=== PATIENT | male | born 1975 | race Native Hawaiian/Other Pacific Islander ===

== ENCOUNTER 2023-10-28 07:34 | Emergency (ER) | payer SELFPAY ==
[2023-10-28 07:38] VITALS: BP 222/124; PULSE 86; RESP 18; TEMP 36.4; O2SAT 99; BMI 39.1
[2023-10-28 08:00] VITALS: BP 181/101
--- NOTE | 2023-10-28 08:13 | ED_ITS ---
HPI - General Adult General Chief complaint: Eye Problems Stated complaint: eye complaints Time Seen by Provider: 10/28/23 08:11 History of Present Illness HPI narrative: friday night eyes started dripping blood then something floating in them. then could not see out of R eye, could see shapes though. thought it was high blood sugar. has been off diabetes meds for 4-5 months, was unable to get them from the pharmacy. [facility] and was able to call and get medications yesterday. appointment unavailable for pt yesterday though. pt thinking symptoms a little better today but still cannot see r eye. does not check blood sugar. 48-year-old man presenting to the emergency department with concern of what appears to be dripping blood in his right eye in vision and floaters starting 2 and half days ago. Has been experiencing some posterior headaches as well. Had trouble at that time with appearance of blood seeing out of his right eye. That has improved but still blurry. Already has trouble with his left eye and has had ?surgery?/procedure at some point in [place] about a year ago. Chronically blurry in left eye. He notes how his eyelids also droop when he is tired in the evenings. It sounds as though there has been mention of glaucoma. Has seen [facility] in the past. Underlying history of diabetes. Has been off medications over the last 4 - 5 months but just got fills of glipizide and pioglitazone. No recent blood sugar checks. I notice that he has lower extremity edema which he says has been present since a [place] trip [place]. Is not complaining of shortness of breath or chest pain. He is not experiencing any eye pain at this time. No focal weakness. No loss of sensation peripherally noted. He is to be taking lisinopril as well but has not been able to get refill. Also he thinks there was to be a another medication, amlodipine? of uncertain dosing. I notice also clubbing of all nails on both hands -- says it has always been this way. On triage reported that not able to see top line on visual acuity testing with either eye. Denies double vision Without health insurance currently. Does get intermittent work at local [email or web address] facility. Recheck blood pressure 180/110 approximately working today working today working today Related Data Home Medications ?Medication ?Instructions ?Recorded ?Confirmed glipizide 10 mg tablet 10 mg PO BID 10/28/23 10/28/23 pioglitazone 45 mg tablet 45 mg PO DAILY 10/28/23 10/28/23 Allergies Allergy/AdvReac Type Severity Reaction Status Date / Time No Known Drug Allergies Allergy Verified 10/28/23 07:45 Review of Systems Status of ROS: Reports: 6 or more systems reviewed and unremarkable except as noted in History and below Exam Narrative: Exam Narrative: Pleasant. NAD. Slight ptosis of the left eye which reportedly is chronic. Head is atraumatic. Neck is supple. Heart with regular rate and rhythm without murmur rub or gallop. Lungs are clear. Extremities are well perfused. Moving all extremities without difficulty with good strength. Clubbing fingernails of both hands. 1+ pretibial pitting edema of the lower extremities bilaterally. Left perhaps a little more than the right. Abdomen is overweight soft and nontender. Cranial nerves 2-12 are intact other than he has the left eye with slightly more constricted pupil. Does accommodate but rather sluggish to constrict to direct light. Right eye with some dark spots noted on the retina. Conjugate gaze. Const: Vital Signs, click to edit/add: Vital Signs - 24 hr 10/28/23 07:38 10/28/23 08:00 10/28/23 08:30 Temperature 97.6 F Pulse Rate [Pulse Oximeter] 86 Respiratory Rate 18 Blood Pressure [Ri ght Upper Arm] 222/124 H 181/101 H 189/112 H Pulse Oximetry 99 Oxygen Delivery Me thod Room Air Documenting provider has reviewed patient's vital signs: yes Course Vital Signs Vital signs: Initial Vital Signs Temperature 97.6 F 10/28/23 07:38 Temperature Source Temporal Artery Scan 10/28/23 07:38 Pulse Rate 86 10/28/23 07:38 Respiratory Rate 18 10/28/23 07:38 Blood Pressure 222/124 H 10/28/23 07:38 Blood Pressure Mean 156 H 10/28/23 07:38 Blood Pressure Position Sitting 10/28/23 07:38 Pulse Oximetry 99 10/28/23 07:38 Oxygen Delivery Method Room Air 10/28/23 07:38 Vital Signs Temperature 97.6 F 10/28/23 07:38 Pulse Rate 86 10/28/23 07:38 Respiratory Rate 18 10/28/23 07:38 Blood Pressure 222/124 H 10/28/23 07:38 Pulse Oximetry 99 10/28/23 07:38 Oxygen Delivery Method Room Air 10/28/23 07:38 Temperature 97.6 F 10/28/23 07:38 Pulse Rate 86 10/28/23 07:38 Respiratory Rate 18 10/28/23 07:38 Blood Pressure 189/112 H 10/28/23 08:30 Pulse Oximetry 99 10/28/23 07:38 Oxygen Delivery Method Room Air 10/28/23 07:38 Medical Decision Making MDM Narrative Medical decision making narrative: Clearly needs control of diabetes and hypertension. Does have pending lab draw per his report. Will try to confirm this and get him an appointment as soon as possible through [facility]. He has been lost to primary care with snf of his primary care provider. Complicated also by lack of insurance. He has seen [facility] Dr. Teague I think this is less likely cerebral vascular injury and more likely retinal. Related to poorly treated diabetes and uncontrolled hypertension. Does have some peripheral edema as well. All of these symptoms are semi urgent but I think can be treated outpatient with close follow-up. I do speak with Dr. Baum at [facility] who does say that he has seen Dr. Teague at their clinic but did receive procedures to [place] with a Dr. Hope. Is known to have had vitreous hemorrhages and suspects that this is likely what is occurring here, possible retinal hemorrhage. Would like to be seen today. Have managed to make an appointment for [facility] yet today. And he is to show up at [facility] to be scheduled later in the day. Will need to get refills of his lisinopril and amlodipine. Will need diabetic testing supplies. See patient discharge plan for further discussion Medical Records Medical records reviewed: Yes I reviewed the patient's medical records Discharge Plan Discharge Clinical Impression: Vision changes, Hypertension, Diabetes, Edema, peripheral Patient Disposition: Home w/ Parent or Adult Additional Instructions: Please go directly to the [facility] to schedule an appointment today. I spoke to Dr. Baum about this. Then go to your [facility] appointment today --see below. I would anticipate a blood draw and further recommendations at your clinic appointment. You will need to restart your lisinopril and amlodipine. Be sure to keep your legs up at rest. Follow up appointment is scheduled with [facility] on 10/27 with an 11:30am appointment time. If you have any questions, please call [phone]. Please arrive at the [facility] for a follow up appointment. If you have any questions, please call [phone]. Por favor, dir?vicki directamente a la [facility] para programar danni ren hoy. Habl? con el Dr. Baum sobre esto. Luego, vaya a reyes ren con [facility] hoy mismo; consulte a continuaci?n. Preveo que le extraer?n kathy y le andriy?n m?s recomendaciones en reyes ren en la cl?della. Deber? reiniciar reyes tratamiento con lisinopril y amlodipino. Aseg?rese de mantener las piernas en alto mientras descansa. La ren de seguimiento est? programada con [facility] para el o a las 11:30 a. m. Si tiene alguna pregunta, llame al [phone]. Por favor, llegue a la [facility] para danni ren de seguimiento. Si tiene alguna pregunta, llame al [phone]. Prescriptions: No Action glipizide 10 mg tablet 10 mg PO BID pioglitazone 45 mg tablet 45 mg PO DAILY Follow Up/Referrals: Provider,Not a Local [Primary Care Provider] - Stand Alone Forms: [employer] Info Instructions
[2023-10-28 08:30] VITALS: BP 189/112
--- OUTSIDE RECORDS SUMMARY | 2023-10-28 08:50 | XMS_ITS | Data Portability ---
Author Organization [facility] CommunicationJerardo laoVALERIANO OFFICE Address [address] [place] [address] [facility] [place] [address] Assessment No assessment recorded. Plan of Treatment Reminders Order Date Submit Date Provider Last Modified By Organization Details Last Modified Time Details Appointments LAB WORK 2023 09:15A M Not available Not available Not available Lab CBC 2021 [facility], [address] [place], [place] [address], [address], 02/08/2022 15:16:54 CMP, serum or plasma 2021 [facility], [address] [place] [address] [facility] [place], [address], 02/11/2022 05:46:59 lipid panel, serum 2021 [facility], [address] [place], [place] [address], [address], 02/11/2022 05:46:59 hemoglobi n A1C/hemog lobin total, QN, blood 2021 [facility], [address] [place] [address] [facility] [place], [address], 02/08/2022 18:51:13 noninvasi ve colorecta l cancer DNA + occult blood screening , QL, stool [facility] [address] [place], [place] [address], [address], 03/05/2022 15:32:39 CBC w/ auto diff 04/03/ 2024 04/03/2 024 [facility], [address] [facility] [place] [facility] [place], [address], 07/25/2023 14:47:37 lipid panel, serum 2023 024 [facility], [address] [facility] [place], [address], 07/25/2023 14:47:37 CMP, serum or plasma 2023 024 [facility], [address] [facility] [place], [address], 07/25/2023 14:47:37 Referral community health worker referral - patient and family have limited means and need info on food shelf 2021 022 [email or web address] Not available 01/16/2022 12:37:[address] referral - has diabetic eye problems and optometri st wanted to see him frequentl y, he needs another apt 2022 023 [email or web address] Not available 03/12/2022 09:25:29 Procedures None recorded. Surgeries None recorded. Imaging None recorded. Medication Orders brimonidi ne 0.2 % eye drops 2021 022 [facility] [place], [address], [place], [address], 11/06/2021 17:46:[address] 0.005 % eye drops 2021 [facility]22 [facility] [place], [address], [place], [address], 11/06/2021 17:46:29 lisinopri l 5 mg tablet [email or web address] [place] [address] [place], [address] [place], [address], 06/04/2023 18:50:36 hydrochlo rothiazid e 25 mg tablet 2021 [email or web address] [facility], [address], [place], [address], 11/06/2021 17:55:56 pioglitaz one 30 mg tablet 2021 [email or web address] [facility], [address], [place], [address], 09/11/2023 20:13:28 lisinopri l 5 mg tablet 2021 [email or web address] [facility], [address], [place], [address], 06/04/2023 18:50:36 hydrochlo rothiazid e 50 mg tablet 2021 [facility], [address], [place], [address], 11/08/2021 11:06:24 lisinopri l 20 mg tablet [email or web address] [place] [address], [address], [place], [address], 06/04/2023 18:54:28 amlodipin e 5 mg tablet 2021 [facility], [address], [place], [address], 01/16/2022 12:32:52 metformin 1,000 mg tablet 2021 [facility], [address], [place], [address], 01/16/2022 12:29:39 glipizide 5 mg tablet 2021 [facility], [address], [place], [address], 01/16/2022 12:29:12 hydrochlo rothiazid e 50 mg tablet 2021 [facility], [address], [place], [address], 01/16/2022 12:30:22 pioglitaz one 45 mg tablet 2021 [facility], [address], [place], [address], 01/16/2022 12:35:00 atorvasta tin 20 mg tablet 2021 [facility], [address], [place], [address], 01/16/2022 12:32:19 lisinopri l 20 mg tablet 2023 024 [facility], [address], [place], [address], 06/05/2023 12:12:23 amlodipin e 5 mg tablet 2023 024 [facility], [address], [place], [address], 06/05/2023 12:12:17 atorvasta tin 20 mg tablet 2023 024 [facility], [address], [place], [address], 06/05/2023 12:14:58 glipizide 5 mg tablet 2023 024 [facility], [address], [place], [address], 07/18/2023 11:49:56 hydrochlo rothiazid e 50 mg tablet 2023 024 [facility], [address], [place], [address], 06/05/2023 12:12:55 metformin 1,000 mg tablet 2023 024 [facility] [place], [address], [place], [address], 06/05/2023 12:12:40 omeprazol e 40 mg capsule,d elayed release 2023 [facility], [address], [place], [address], 06/05/2023 12:11:55 pioglitaz one 45 mg tablet 2023 024 [facility] [place], [address], [place], [address], 06/05/2023 12:12:32 tadalafil 20 mg tablet [address]23 [address] [place], [address], [place], [address], 09/17/2023 22:39:18 Patient TargetsNo targets recorded. Patient Instructions Encounter Date Encounter Id Patient Instructions Last Modified By Organization Details Last Modified Time 07/03/2021 [id number] eat regularly, check glucose twice a week, cut lisinopril in half and switch to 5 mg, try to loose weight, coordinator will call you about APC application [email or web address] Not available 07/03/2021 20:10:19 check glucometer next visit scotty Not available 07/03/2021 20:10:35 11/06/2021 [id number] continue to loos e weight, watch for dizziness and cough, check glucose twice a week, have partner check feet daily for open or irritated areas scotty Not available 11/06/2021 18:18:34 already has had complications, need to lower BP and glucose more to protect health scotty Not available 11/06/2021 18:15:34 01/15/2022 [id number] ask to chec k glucometer twice a week, mann to decr weight scotty Not available 01/15/2022 18:31:35 info release for [facility] scotty Not available 01/15/2022 18:37:06 03/05/2022 [id number] continue to keep glucose down scotty Not available 03/05/2022 19:21:57 needs in person to check BP and feet, optometry requested scotty Not available 03/05/2022 19:22:49 Reason for Referral Diabetic Ophthalmology Refer ral for Type 2 diabetes mellitus without complication last opthalmology appointment 1 year ago - new vision changes recently Referring Physician: Manisha Machuca, Family Medicine, Encounter Date: 05/03/2020 Community Health Worker Refe rral for Type 2 diabetes mellitus patient and family have limited means and need info on food shelf Referring Physician: Osito Razo, Internal Medicine, Encounter Date: 01/15/2022 Licensed Appraiser Referral for Typ e 2 diabetes mellitus without complication has diabetic eye problems and 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 med compliance Referring Physician: Marylou Villeda Family Medicine, Encounter Date: 07/18/2023 Community Health Worker Refe rral for Type 2 diabetes mellitus poorly controlled diabetes, worsening kidney disease - needs diabetes ed, home glucose monitoring Referring Physician: Marylou Villeda Family Medicine, Encounter Date: 08/14/2023 Results Created Date Observation Date Name Description Value Unit Range Abnormal Flag Note LastModifiedBy Organization Detail LastModifiedTime 06/28/19 22 06/27/2021 HbA1c (hemo globi n A1c), blood A1C 7.4 high Not Available [facility] [address], [place], [address], 06/29/2021 09:10:36 06/28/19 22 06/27/2021 CMP, serum or plasm a createnine 1.39 high Not Available [facility] [address], [place], [address], 06/28/2021 12:16:16 06/28/19 22 06/27/2021 CMP, serum or plasm a ALT 23 Not Available [facility] [address], [place], [address], 06/28/2021 12:16:16 12/21/19 22 12/20/2021 micro album in, urine micro ratio 4,667. 8 high Not Available [address], [address], 12/21/2021 13:06:35 02/08/20 22 02/07/2022 CMP, serum or plasm a total cholesterol 171 Not Available Not Available 02/11/2022 05:46:59 02/08/20 22 02/07/2022 CMP, serum or plasm a triglyceride s 135 Not Available Not Available 01/31 05:46:59 02/08/20 22 02/07/2022 CMP, serum or plasm a HDL 52 Not Available Not Availa ble 02/11/2022 05:46:59 02/08/20 22 02/07/2022 CMP, serum or plasm a LDL 92 Not Available Not Availa ble 02/11/2022 05:46:59 02/08/20 22 02/07/2022 CMP, serum or plasm a creatinine 1.52 high Not Available Not Dia ilable 02/11/2022 05:46:59 02/08/20 22 02/07/2022 CMP, serum or plasm a ALT 20 Not Available Not Availa ble 02/11/2022 05:46:59 02/08/20 22 02/07/2022 lipid panel , serum total cholesterol 171 Not Available Not Available 02/09/2022 19:10:32 02/08/20 22 02/07/2022 lipid panel , serum triglyceride s 135 Not Available Not Available 01/31 19:10:32 02/08/20 22 02/07/2022 lipid panel , serum HDL 52 Not Available Not Availa ble 02/09/2022 19:10:32 02/08/20 22 02/07/2022 lipid panel , serum LDL 92 Not Available Not Availa ble 02/09/2022 19:10:32 02/08/20 22 02/07/2022 lipid panel , serum creatinine 1.52 high Not Available Not Dia ilable 02/09/2022 19:10:32 02/08/20 22 02/07/2022 lipid panel , serum ALT 20 Not Available Not Availa ble 02/09/2022 19:10:32 02/08/20 22 02/07/2022 hemog lobin A1C/h emogl obin total , QN, blood hemoglobin A1C 7.8 high Not Available [facility] [address], [place], [address], 02/08/2022 16:26:31 02/08/20 22 02/07/2022 CBC white blood count 8.2 Not Available [facility] [address], [place], [address], 02/08/2022 14:12:44 02/08/20 22 02/07/2022 CBC hemoglobin 11.0 Not Avail able [facility] [address], [place], [address], 02/08/2022 14:12:44 02/08/20 22 02/07/2022 CBC platelet count 328 Not Available [facility] [address], [place], [address], 02/08/2022 14:12:44 07/16/19 24 07/16/2023 hemog lobin A1c, QN, blood A1C 11.0 high Not Available [facility] [address], [place], [address], 07/17/2023 18:09:20 07/17/19 24 07/17/2023 lipid panel , serum micro ratio >10,23 2.6 abnormal Not Available [place] [facility] [address] [place] [address], [place], [address], 07/25/2023 14:47:37 07/17/19 24 07/17/2023 lipid panel , serum white blood count 6.9 Not Available [facility] [address] [place] [address] [place], [address], 07/25/2023 14:47:37 07/17/19 24 07/17/2023 lipid panel , serum hemoglobin 14.1 Not Available Count includes the [facility] [address] [place] [address] [place], [address], 07/25/2023 14:47:37 07/17/19 24 07/17/2023 lipid panel , serum plt 336 Not Available [place] [facility] [address] [place] [address] [place], [address], 07/25/2023 14:47:37 07/17/19 24 07/17/2023 lipid panel , serum cr 2.13 abnormal Not Available [place] [facility] [address] [place] [address] [place], [address], 07/25/2023 14:47:37 07/17/19 24 07/17/2023 lipid panel , serum eGFR 38 abnormal Not Available [place] [facility] [address] [place] [address] [place], [address], 07/25/2023 14:47:37 07/17/19 24 07/17/2023 lipid panel , serum ALT 20 Not Available [place] [facility] [address] [place] [address] [place], [address], 07/25/2023 14:47:37 07/17/19 24 07/17/2023 lipid panel , serum total cholesterol 420 high Not Available [facility] [address] [place] [address] [place], [address], 07/25/2023 14:47:37 07/17/19 24 07/17/2023 lipid panel , serum triglyceride s 332 high Not Available [facility] [address] [place] [address] [place], [address], 07/25/2023 14:47:37 07/17/19 24 07/17/2023 lipid panel , serum HDL 51 Not Available [place] [facility] [address] [place] [address] [place], [address], 07/25/2023 14:47:37 07/17/19 24 07/17/2023 lipid panel , serum LDL 303 high Not Available [place] [facility] [address] [place] [address] [place], [address], 07/25/2023 14:47:37 07/17/19 24 07/17/2023 CMP, serum or plasm a micro ratio >10,23 2.6 abnormal Not Available [place] [facility] [address] [place] [address] [place], [address], 07/25/2023 14:47:37 07/17/19 24 07/17/2023 CMP, serum or plasm a white blood count 6.9 Not Available [facility] [address] [place] [address] [place], [address], 07/25/2023 14:47:37 07/17/19 24 07/17/2023 CMP, serum or plasm a hemoglobin 14.1 Not Available Count includes the [facility] [address] [place] [address] [place], [address], 07/25/2023 14:47:37 07/17/19 24 07/17/2023 CMP, serum or plasm a plt 336 Not Available [place] [facility] [address] [place] [address] [place], [address], 07/25/2023 14:47:37 07/17/19 24 07/17/2023 CMP, serum or plasm a cr 2.13 abnormal Not Available [address] [place], [address], 07/25/2023 14:47:37 07/17/19 24 07/17/2023 CMP, serum or plasm a eGFR 38 abnormal Not Available [place] [facility] [address] [place] [address] [place], [address], 07/25/2023 14:47:37 07/17/19 24 07/17/2023 CMP, serum or plasm a ALT 20 Not Available [place] [facility] [address] [place] [address] [place], [address], 07/25/2023 14:47:37 07/17/19 24 07/17/2023 CMP, serum or plasm a total cholesterol 420 high Not Available [facility] [address] [place] [address] [place], [address], 07/25/2023 14:47:37 07/17/19 24 07/17/2023 CMP, serum or plasm a triglyceride s 332 high Not Available [facility] [address] [place] [address] [place], [address], 07/25/2023 14:47:37 07/17/19 24 07/17/2023 CMP, serum or plasm a HDL 51 Not Available [place] [facility] [address] [place] [address] [place], [address], 07/25/2023 14:47:37 07/17/19 24 07/17/2023 CMP, serum or plasm a LDL 303 high Not Available [place] [facility] [address] [place] [address] [place], [address], 07/25/2023 14:47:37 07/17/19 24 07/17/2023 CBC w/ auto diff micro ratio >10,23 2.6 abnormal Not Available [place] [facility] [address] [place] [address] [place], [address], 07/25/2023 14:47:37 07/17/19 24 07/17/2023 CBC w/ auto diff white blood count 6.9 Not Available [facility] [address] [facility] [place], [address], 07/25/2023 14:47:37 07/17/19 24 07/17/2023 CBC w/ auto diff hemoglobin 14.1 Not Available Count includes the [facility] [address] [place] [address] [place], [address], 07/25/2023 14:47:37 07/17/19 24 07/17/2023 CBC w/ auto diff plt 336 Not Available [place] [facility] [address] [place] [address] [place], [address], 07/25/2023 14:47:37 07/17/19 24 07/17/2023 CBC w/ auto diff cr 2.13 abnormal Not Available [place] [facility] [address] [place] [address] [place], [address], 07/25/2023 14:47:37 07/17/19 24 07/17/2023 CBC w/ auto diff eGFR 38 abnormal Not Available [place] [facility] [address] [place] [address] [place], [address], 07/25/2023 14:47:37 07/17/19 24 07/17/2023 CBC w/ auto diff ALT 20 Not Available [place] [facility] [address] [place] [address] [place], [address], 07/25/2023 14:47:37 07/17/19 24 07/17/2023 CBC w/ auto diff total cholesterol 420 high Not Available [facility] [address] [place] [address] [place], [address], 07/25/2023 14:47:37 07/17/19 24 07/17/2023 CBC w/ auto diff triglyceride s 332 high Not Available [facility] [address] [place] [address] [place], [address], 07/25/2023 14:47:37 07/17/19 24 07/17/2023 CBC w/ auto diff HDL 51 Not Available [place] [facility] [address] [place] [address] [place], [address], 07/25/2023 14:47:37 07/17/19 24 07/17/2023 CBC w/ auto diff LDL 303 high Not Available [place] [facility] [address] [place] [address] [place], [address], 07/25/2023 14:47:37 07/17/19 24 07/17/2023 micro album in/cr eatin ine, ratio panel , urine micro ratio >10,23 2.6 abnormal Not Available [place] [facility] [address] [place] [address] [place], [address], 07/25/2023 14:40:24 07/17/19 24 07/17/2023 micro album in/cr eatin ine, ratio panel , urine white blood count 6.9 Not Available [facility] [address] [place] [address] [place], [address], 07/25/2023 14:40:24 07/17/19 24 07/17/2023 micro album in/cr eatin ine, ratio panel , urine hemoglobin 14.1 Not Available Count includes the [facility] [address] [place] [address] [place], [address], 07/25/2023 14:40:24 07/17/19 24 07/17/2023 micro album in/cr eatin ine, ratio panel , urine plt 336 Not Available [place] [facility] [address] [place] [address] [place], [address], 07/25/2023 14:40:24 07/17/19 24 07/17/2023 micro album in/cr eatin ine, ratio panel , urine cr 2.13 abnormal Not Available [place] [facility] [address] [place] [address] [place], [address], 07/25/2023 14:40:24 07/17/19 24 07/17/2023 micro album in/cr eatin ine, ratio panel , urine eGFR 38 abnormal Not Available [place] [facility] [address] [place] [address] [place], [address], 07/25/2023 14:40:24 07/17/19 24 07/17/2023 micro album in/cr eatin ine, ratio panel , urine ALT 20 Not Available [place] [facility] [address] [place] [address] [place], [address], 07/25/2023 14:40:24 07/17/19 24 07/17/2023 micro album in/cr eatin ine, ratio panel , urine total cholesterol 420 high Not Available [facility] [address] [place] [address] [place], [address], 07/25/2023 14:40:24 07/17/19 24 07/17/2023 micro album in/cr eatin ine, ratio panel , urine triglyceride s 332 high Not Available [facility] [address] [place] [address] [place], [address], 07/25/2023 14:40:24 07/17/19 24 07/17/2023 micro album in/cr eatin ine, ratio panel , urine HDL 51 Not Available [place] [facility] [address] [place] [address] [place], [address], 07/25/2023 14:40:24 07/17/19 24 07/17/2023 micro album in/cr eatin ine, ratio panel , urine LDL 303 high Not Available [place] [facility] [address] [place] [address] [place], [address], 07/25/2023 14:40:24 08/13/19 24 08/13/2023 BMP, serum or plasm a cr 2.35 abnormal Not Available Not Avail able 08/14/2023 15:09:43 Result Notes None recorded. 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 94011417 Active 2020 Osito Razo MD [address] [place] [address], [address], [facility] 2 16:31:52 Nonproliferat jeannie retinopathy due to diabetes mellitus 881615851 Active 2020 Osito Razo MD [address] [place] [address], [address], [facility] 2 16:31:57 SARS-CoV-2 Active 2019 Josephine Gregory NP [address] [place] [address], [address], [facility] 0 15:00:43 Essential hypertension 22523572 Active 2021 Osito Razo MD [address] [place] [address], [address], [facility] 2 16:33:01 Hyperlipidemi a 20437715 Active 2021 Osito Razo MD [address] [place] [address], [address], [facility] 2 16:32:51 Chronic kidney disease 309812361 Active 2023 MARYLOU VILLEDA MD [address] [place] [address], [address], [facility] 01:14:05 Notes:Problem: Hypoglycaemia due to type 2 diabetes mellitus Status: Chronic Problem: Type 2 diabetes mellitus Status: Chronic, cloudy vision Problem Notes None recorded. Procedures Surgical History Date Name Laterality Status Provider Name and Address Organization Details Recorded Time Amputation of toe completed Manisha Machuca NP [address] [place] [address], [address], [facility] 05/03/2020 14:34:10 Imaging Results None recorded. Procedure Notes None recorded. Medical Equipment None Reported. Allergies Allergen ID Allergen Name Allergen Category Reaction Reaction Severity Criticality Documentation Date Start Date Code Code System Note Provider Name and Address Organization Details Recorded Time 1623 lisinopri l medicatio n cough mild Not available 11/06/2021 50405 RxNorm Osito Razo MD [address] [place], [address], [facility] 18:13:52 Medications Name Sig Start Date Stop Date Status Note LastModified by Organization Details LastModified Time latanoprost 0.005 % eye drops INSTILL 1 DROP IN LEFT EYE AT BEDTIME. SEPARATE BY AT LEAST 10MIN. FROM OTHER EYE DROP PRESSURE REDUCING OPTHALMIC DRUGS 11/06 completed Not Available Not Available Not Available pioglitazon e 15 mg tablet TAKE 2 TABLET EVERY DAY BY ORAL ROUTE. 11/06 completed Not Available Not Available Not Available atorvastati n 20 mg tablet TAKE 1 TABLET EVERY DAY BY ORAL ROUTE. active Not Available Not Available No t Available clindamycin HCl 300 mg capsule TAKE 1 CAPSULE (300MG) BY MOUTH 3 TIMES DAILY FOR 14 DAYS. 01/23 completed Not Available Not Available Not Available hydrochloro thiazide 50 mg tablet TAKE 1 TABLET EVERY DAY BY ORAL ROUTE. active Not Available Not Available No t Available lisinopril 20 mg tablet TAKE ONE TABLET BY MOUTH ONCE DAILY active Not Available Not Available No t Available glipizide 10 mg tablet IGNACIA 1 TABLETA POR VIA ORAL DOS VECES AL KATHY (1 TABLET BY MOUTH TWO TIMES A DAY) active Not Available Not Available No t Available bacitracin 500 unit/gram topical ointment once a day 11/25 completed Not Available Not Available Not Available pioglitazon e 45 mg tablet TAKE 1 TABLET EVERY DAY BY ORAL ROUTE. active Not Available Not Available No t Available amlodipine 5 mg tablet TAKE 1 TABLET BY MOUTH DAILY active Not Available Not Available No t Available sulfamethox azole 800 mg-trimetho prim 160 mg tablet take 1 tablet by oral route every 12 hours 05/03 completed Not Available Not Available Not Available omeprazole 40 mg capsule,del ayed release TAKE 1 CAPSULE EVERY DAY BY ORAL ROUTE. active Not Available Not Available No t Available aspirin 81 mg tablet,quentin yed release take 1 tablet by oral route every day 2021 active Not Available Not Available Not Avai lable tramadol 50 mg tablet take 1 tablet hs as needed 09/16 completed Not Available Not Available Not Available sildenafil 100 mg tablet TAKE ONE TABLET BY MOUTH EVERY DAY NEEDED APPROXIMA TELY 1 HOUR BEFORE SEXUAL ACTIVITY 06/03 completed Not Available Not Available Not Available ketorolac 10 mg tablet 05/03 completed Not Available Not Available Not Available metformin 1,000 mg tablet Take 0.5 tablets twice a day by oral route, for type 2 diabetes. 2023 active Not Available Not Available Not Avai lable neomycin-po lymyxin-dex ameth 3.5 mg/mL-10,00 0 unit/mL-0.1 % eye drops APPLY 1 DROP INTO INJECTED EYE 3 TIMES A DAY FOR 3 DAYS AFTER INJECTION . IF DOES NOT IMPROVE IN 3-5 DAYS CONTACT PROVIDER 01/23 completed Not Available Not Available Not Available brimonidine 0.2 % eye drops APPLY 1 DROP TWICE A DAY IN LEFT EYE 11/06 completed Not Available Not Available Not Available lisinopril 5 mg tablet TAKE 1 TABLET EVERY DAY BY ORAL ROUTE. 06/03 completed Not Available Not Available Not Available hydrochloro thiazide 25 mg tablet TAKE 1 TABLET EVERY DAY BY ORAL ROUTE. 11/06 completed Not Available Not Available Not Available levofloxaci n 500 mg tablet take 1 tablet by oral route every 24 hours 12/30 completed Not Available Not Available Not Available levofloxaci n 750 mg tablet TAKE ONE TABLET BY MOUTH DAILY 10/17 completed Not Available Not Available Not Available pioglitazon e 30 mg tablet TAKE 1 TABLET EVERY DAY BY ORAL ROUTE. 09/10 completed Not Available Not Available Not Available glipizide 5 mg tablet TAKE 2 TABLETS BY MOUTH TWICE A DAY active Not Available Not Available No t Available amoxicillin 875 mg-potassiu m clavulanate 125 mg tablet TAKE 1 TABLET BY MOUTH TWO TIMES DAILY WITH MEALS FOR 10 DAYS. 01/15 completed Not Available Not Available Not Available rosuvastati n 10 mg tablet TAKE 1 TABLET BY MOUTH DAILY 01/15 completed Not Available Not Available Not Available tadalafil 20 mg tablet TAKE ONE TABLET BY MOUTH DAILY 09/16 completed eGFR 33 Not Available Not Available Not Available melatonin 5 mg capsule one at bedtime as needed 09/16 completed Not Available Not Available Not Available Vitals Date Recorded Body height Body mass index (BMI) Body weight Heart rate Systolic blood pressure Diastolic blood pressure Provider Name and Address Organization Details Last Updated DateTime 2 170.18 cm 34.1 kg/m2 64175.1 4 g 94 /min 140 mm[Hg] 83 mm[Hg] Lissy Juarez [facility] 2 19:37:30 Date Recorded Body height Body mass index (BMI) Body weight Systolic blood pressure Diastolic blood pressure Provider Name and Address Organization Details Last Updated DateTime 11/06/2021 170.18 cm 32.9 kg/m2 24567.4 g 140 mm[Hg] 78 mm[Hg] Osito Razo MD [address] [place], [address] [place] [address] [facility] 2 18:05:17 Date Recorded Body height Body mass index (BMI) Body weight Heart rate Oxygen saturation Oxygen saturation in Arterial blood by Pulse oximetry Systolic blood pressure Diastolic blood pressure Systolic blood pressure Diastolic blood pressure Provider Name and Address Organization Details Last Updated DateTime 4 166.37 cm 35.1 kg/m2 12756.7 7 g 82 /min 98 % 98 % 178 mm[Hg] 102 mm[Hg] 182 mm[Hg] 104 mm[Hg] Theodora Lewis [facility] 4 18:55:15 Social History Question Answer Notes LastModified by Organizat ion Details LastModified Time Tobacco Smoking Status Never Smoker Manisha Machuca NP [address] [place], [address], [facility] 05/03/2020 14:33:17 What Is Your Level Of Alcohol Consumption? None Information not available 05/03/2020 What Is Your Level Of Caffeine Consumption? Moderate Information not available 05/03/2020 Are You Currently Employed? Yes Information not available 11/06/2021 Who Is Your Employer? [employer] Information not available 11/06/2021 What Is Your Occupation? Packing Information not available 05/03/2020 What Is Your Relationship Status? Information not available 11/06/2021 Do You Feel Stressed (tense, Restless, Nervous, Or Anxious, Or Unable To Sleep At Night)? [id number] Information not available 11/06/2021 Sex: Unknown Functional Status None recorded. Mental Status None recorded. Family History Nothing Reported. Medical History No medical history recorded. Immunizations Vaccine Type Date Status Provider Name and Address Organization Details Recorded Time COVID-19, mRNA, LNP-S, PF, 30 mcg/0.3 mL dose, julianna-sucrose 05/23/2021 completed ED WILLIS [address] [place], [address], [facility] 05/23/2021 17:45:28 Past Encounters Encounter ID Performer Location Encounter Start Date Encounter Closed Date Diagnosis/Indication Diagnosis SNOMED-CT Code [id number] Josephine Gregory NP [facility] [address] [place] [id number] 09/01/2019 14:52:02 09/01/2019 14:53:39 SARS-CoV-2 [id number] Osito Razo MD [facility] [address] [place] [phone] 12/13/2019 14:49:16 12/13/2019 17:54:39 Primary erectile dysfunction [id number] Manisha Machuca NP [facility] [address] [place] [address] 05/03/2020 14:14:37 05/03/2020 18:01:28 Headache 50623342 Type 2 kathy betes mellitus without complication 847325415 Essential hypertension 51224362 [id number] Osito Razo MD [facility] [address] [place] [address] 06/13/2020 17:59:05 06/13/2020 18:27:51 Type 2 diabetes mellitus without complication 952316331 [id number] Osito Razo MD [facility] [address] [place] [address] 06/27/2020 17:39:55 06/28/2020 11:08:24 Diabetes mellitus 74855121 [id number] Osito Razo MD [facility] [address] [place] [phone] 08/29/2020 19:23:59 08/29/2020 20:02:05 Type 2 diabetes mellitus without complication 736071280 Headache 45580311 [id number] Osito Razo MD [facility] [address] [place] [phone] 10/17/2020 17:09:51 10/17/2020 17:47:36 Type 2 diabetes mellitus 01489867 Type 2 kathy betes mellitus without complication 050538289 Headache [id number] [id number] Osito Razo MD [facility] [address] [place] [id number] 01/23/2021 19:02:46 01/23/2021 19:36:21 Type 2 diabetes mellitus 62128820 Type 2 kathy betes mellitus without complication [id number] Osito Razo MD [facility] [address] [place] [address] 04/10/2021 17:39:19 04/10/2021 19:25:00 Type 2 diabetes mellitus without complication 932853097 Essential hypertension 61421290 Chronic ki dney disease stage 2 [id number] [id number] Osito Razo MD [facility] [address] [place] [phone] 05/08/2021 18:13:01 05/08/2021 19:01:44 Type 2 diabetes mellitus without complication 644106731 Headache [id number] [id number] WILLIAM REILLY TILE HELPER [facility] [place] [address] 05/23/2021 17:28:58 05/23/2021 17:45:44 Administration of SARS-CoV-2 mRNA vaccine [id number] Osito Razo MD [facility] [address] [place] [address] 07/03/2021 19:28:46 07/03/2021 20:11:47 Type 2 diabetes mellitus without complication 542125313 Essential hypertension 20292870 [id number] Osito Razo MD [facility] [address] [place] [address] 11/06/2021 17:29:24 11/06/2021 19:08:31 Type 2 diabetes mellitus 35937374 Retinopath y due to diabetes mellitus 1542141 Essential hypertension 66698164 Hyperlipidemia 33219351 [id number] Osito Razo MD [facility] [address] [place] [address] 01/15/2022 17:52:16 01/15/2022 18:57:39 Type 2 diabetes mellitus without complication 335971613 Essential hypertension 18417441 Type 2 kathy betes mellitus 42410600 [id number] Osito Razo MD [facility] [address] [place] [address] 03/05/2022 19:00:32 03/06/2022 12:22:32 Essential hypertension 56531340 Type 2 kathy betes mellitus without complication 346272172 Hyperlipidemia 28110549 [id number] Giorgi Esquivel MD [facility] [place] [address] 06/04/2023 18:46:11 06/04/2023 20:22:18 Type 2 diabetes mellitus 87641652 Type 2 kathy betes mellitus without complication 887441666 Essential hypertension 04380288 Diabetes mellitus 605094 09 Hypertensive disorder 38 811645 Type II di abetes mellitus uncontrolled 013748488 Health Concerns Section Related Observation LastModified by Organization Detai ls LastModified Time None Recorded Concern Status LastModified by Organization Details LastModified Time None Recorded Advance Directives Directive None Recorded Payers Encounter Date Sequence Insurance Name Policy Number Policy Han Covered Member ID Han Member ID Guarantor Name 07/03/2021 SLIDING FEE SCHEDULE - DISCOUNT [employer] 11/06/2021 SLIDING FEE SCHEDULE - DISCOUNT [employer] 01/15/2022 SLIDING FEE SCHEDULE - DISCOUNT [employer] 03/05/2022 SLIDING FEE SCHEDULE - DISCOUNT [employer] 06/04/2023 SLIDING FEE SCHEDULE - DISCOUNT [employer] Notes Date Note Type Note Provider Name and Address Organization Details Recorded Time 07/03/2021 text/html HPI Notes: alejandra noriega, sees station operator regularly and will need another injection, followed by tooth cutter as he has lost several toes, cough from lisinopril, brought diaries and BP 140/80 at home Osito Razo MD [address] [place], [address], [facility] 07/03/2021 20:10:48 06/04/2023 text/html HPI Notes: needs follow up on htn and diabetes Giorgi Esquivel MD [address] [place], [address], [facility] 06/04/2023 19:34:32
--- OUTSIDE RECORDS SUMMARY | 2023-10-28 08:50 | XMS_ITS | Clinical Summary ---
Author Organization [facility] Address [place], [place] [address] Care Team Providers Care Non Garment Sewing Machine Operator Name Role Phone Osito Razo MD Primary Care Provider [phone] Allergies No known active allergies Medications Medication Sig Dispensed Refills Start Date End Date Status blood-glucose meterIndications:Unc ontrolled type 2 diabetes mellitus with hyperglycemia, unspecified half-way insulin use status Dispense meter, test strips, lancets covered by pt ins. E11.65 NIDDM type II, uncontrolled - Test 2 times/day. Reason: High A1C 1 Each 10/25/2015 Active blood sugar diagnostic (GLUCOCARD VITAL TEST STRIPS) strip Test 2 times/day. 50 Each 10/25/2015 Active lancets (TRUEPLUS LANCETS) 33 gauge misc Test 2 times/day. 100 Each 10/25/2015 Active sildenafil citrate (VIAGRA) 100 mg tablet Take 100 mg by mouth once daily if needed for Erectile Dysfunction. 6 08/20/2018 Active ibuprofen (ADVIL; MOTRIN) 200 mg tablet Take 400 mg by mouth 4 times daily if needed for Pain. Active lisinopriL (PRINIVIL; ZESTRIL) 20 mg tablet Take 20 mg by mouth 2 times daily. Active menthol (GOLD RAIN FOOT TOP) Apply topically to affected area(s) once daily if needed (dry skin). Active amLODIPine (NORVASC) 5 mg tablet Take 5 mg by mouth once daily. Active rosuvastatin (CRESTOR) 10 mg tablet Take 10 mg by mouth at bedtime. Active pen needle, diabetic 31 gauge x 5/16Indications:Typ e 2 diabetes mellitus with diabetic toe ulcer (HC) For administering insulin at home. 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 . 0 units 150 - 199 .................. ..... 2 units 200 - 249 .................. ..... 4 units 250 - 299 .................. ..... 6 units 300 - 349 .................. ..... 8 units 350 - 399 .................. .....10 units 400 or greater .............. 12 units 1 pen 11/26/2019 Active metFORMIN (GLUCOPHAGE XR) 500 mg Extended-Release tabletIndications:Ty pe 2 diabetes mellitus with diabetic toe ulcer (HC) Take 2 tablets by mouth 2 times daily with meals. 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 30 tablet. 05/01/2020 Active lisinopriL (PRINIVIL; ZESTRIL) 20 mg tabletIndications:Hy pertension Take 1 tablet by mouth 2 times daily. 60 tablet 05/01/2020 Active aspirin (ECOTRIN) 81 mg enteric coated tablet Daily as needed Active glipiZIDE (GLUCOTROL) 5 mg tablet Daily Active rx oxyCODONE 5 mg (ROXICODONE) tablet (ED DC MED)Indications:Acut e frontal sinusitis, recurrence not specified,Acute nonintractable headache, unspecified headache type Take 1 Tablet (5 mg) by mouth every 6 hours if needed for Pain. 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 07/25/2016 Nausea 07/25/2016 Hypertension 07/22/2016 Osteomyelitis of ankle or foot 07/21/2016 Diabetic ulcer of left foot associated with type 2 diabetes mellitus 10/21/2015 Overview: I&D of right foot ulcer 10/2015 Type 2 diabetes mellitus wit hout complication, without long-term current use of insulin 03/03/2006 Gas gangrene of foot Resolved Problems Problem Noted Date Diagnosed Date Resolved Date Unavailability or inaccessib ility of healthcare facility 07/21/2016 07/22/2016 Abscess of right foot 10/21/20152016 Type 2 diabetes mellitus wit h foot ulcer and gangrene 10/21/2015 07/22/2016 Elevated C-reactive protein (CRP) 10/21/2015 07/22/2016 Cellulitis of foot 10/20/2015 7 Type II or unspecified type diabetes mellitus without mention of complication, not stated as uncontrolled 12/24/2005 07/22/2016 Encounters Date Type Department Care Team Description 08/13/2023 Lab Requisition [address] [address] Marylou Garner MD from Last 3 Months Immunizations Name Administration Dates Next Due Influenza, IIV4 11/25/2019 Family History Medical History Relation Name Comments Gout Brother 1 younger Vitiligo Brother 2 younger Cancer Father Cancer Mother Arthritis Sister 1 younger Good Health Sister 2 older Relation Name Status Comments Brother 1 younger Brother 2 younger Alive Father (Age 68) at 68 of liver cancer Mother (Age 60) at 60 of liver cancer Sister 1 younger Sister 2 older Alive Social History Tobacco Use Types Packs/Day Years Used Date Smoking Tobacco: Never Smokeless Tobacco: Never Tobacco Cessation:Counseling Given: Yes Alcohol Use Standard Drinks/Week Comments Not Currently 0 (1 standard drink = 0.6 oz pur e alcohol) Sex and Gender Information Value Date Recorded Sex Assigned at Not on file Gender Identity Not on file Sexual Orientation Not on file Obstetrics History Last Filed Vital Signs Vital Sign Reading Time Taken Comments Blood Pressure 176/90 11/28/2021 10:00 PM CDT Pulse 91 11/28/2021 10:00 PM CDT Temperature 36.4 ??C (97.5 ??F) 11/28/2021 2:05 PM CD T Respiratory Rate 18 11/28/2021 2:05 PM CDT Oxygen Saturation 97% 11/28/2021 10:00 PM CDT Inhaled Oxygen Concentration - - Weight 96.6 kg (213 lb) 11/28/2021 2:29 PM CDT Height 157.5 cm (5' 2) 11/28/2021 2:05 PM CDT Body Mass Index 38.96 11/28/2021 2:05 PM CDT Plan of Treatment Health Maintenance Due Date Last Done Comments Tdap 07/19/1986 HIV for age 15-65 07/19/1990 Hepatitis C screening for age 18-79 07/19/1993 Tetanus booster 1995 Depression screening for age 12+ 10/31/2016 11/01/2015, 10/26/2015 BMI (ht and wt on same day) for age 18+ 08/04/2017 08/04/2016, 08/03/2016, 08/02/2016, Additional history exists Colonoscopy through age 75 07/19/2020 COVID-19 vaccine series (2022- season) 2022 05/23/2021, 07/06/2020, 06/07/2020 Influenza for age 9-49 11/02/2023 11/25/2019 Lipids for age 45-75 07/15/2028 07/16/2023, 02/07/2022, 03/28/2021, Additional history exists Pneumococcal series for age 6-64 Aged Out No longer eligible based on patient's age to complete this topic Medical Devices Implanted Type Area Market Development Manager Device Identifier Shelf Expiration Date Model / Serial / Lot Mfwd 301 - [id number] Implanted:Qty: 2 on 10/24/2015 by Oscar Bustamante DPM at [facility] Right: Foot 06/30/2016 FWD 301 / / [id number] 1 Description:Integra flowable wound matrix [id number] - [id number] Implanted:Qty: 1 on 10/24/2015 by Oscar Bustamante DPM at [facility] Right: Foot [employer] 05/31/2017 [id number] / / [id number] Description:PriMatrix 6cm x 6cm Procedures Procedure Name Priority Date/Time Associated Diagnosis Comments BASIC METABOLIC PANEL Routine 08/13/2023 9:30 AM CDT LIPID PANEL Routine 07/16/2023 9:45 AM CDT from Last 3 Months or Most Recently Relevant to Health Maintenance Results * (ABNORMAL) BASIC METABOLIC PANEL (08/13/2023 9:30 AM CDT) SODIUM 136 136 - 145 mmol/L 08/14/2023 1:04 PM CDT [facility] POTASSIUM 4.6 3.5 - 5.1 mmol/L 08/14/2023 1:04 PM CDT [facility] CHLORIDE 107 98 - 107 mmol/L 08/14/2023 1:04 PM CDT [facility] CO2,TOTAL 20(L) 22 - 29 mmol/L 08/14/2023 1:04 PM CDT [facility] ANION GAP 9 5 - 18 08/14/2023 1:04 PM CDT [facility] GLUCOSE 193(H) 70 - 99 mg/dL 08/14/2023 1:04 PM CDT [facility] CALCIUM 8.7 8.6 - 10.0 mg/dL 08/14/2023 1:04 PM CDT [facility] BUN 36(H) 6 - 20 mg/dL 08/14/2023 1:04 PM CDT [facility] CREATININE 2.34(H) 0.70 - 1.20 mg/dL 08/14/2023 1:04 PM CDT [facility] BUN/CREAT RATIO 15 10 - 20 4 1:04 PM CDT [facility] eGFR 33(L) >90 mL/min/1.7 3m2 08/14/2023 1:04 PM CDT [facility] Comment:As of 2021, eG FR is calculated by the CKD-EPI creatinine equation without race adjustment. ??eGFR can be influenced by muscle mass, exercise, and diet. ??The reported eGFR is an estimation only and is only applicable if the renal function is stable. Blood BLOOD SPECIMEN / Unknown 08/13/2023 9:30 AM CDT 08/14/2023 12:30 PM CDT Marylou Garner MD CHEMISTRY [facility] [address] [place] [address], * (ABNORMAL) LIPID PANEL (07/16/2023 9:45 AM CDT) CHOLESTEROL,TOTAL 420(H) 100 - 199 mg/dL 07/17/2023 3:25 PM CDT [facility] Comment: Cholesterol, Total Reference Ranges Desirable <200 mg/dL Borderline 200-239 mg/dL High >=240 mg/dL TRIGLYCERIDES 332(H) <150 mg/dL 07/17/2023 3:25 PM CDT [facility] HDL CHOLESTEROL 51 >40 mg/dL 4 3:25 PM CDT [facility] NON-HDL CHOLESTEROL 369(H) <145 mg/dl 07/17/2023 3:25 PM CDT [facility] CHOL/HDL RATIO 8.24(H) <4.50 07/17/2023 3:25 PM CDT [facility] LDL CHOLESTEROL 303(H) <=130 mg/dL 07/17/2023 3:25 PM CDT [facility] VLDL CHOLESTEROL 66(H) <=30 mg/dL 07/17/2023 3:25 PM CDT [facility] PROVIDER ORDERED STATUS RANDOM 07/17/2023 3:25 PM CDT [facility] Blood BLOOD SPECIMEN / Unknown Non-Lab Venipuncture / Unknown 07/16/2023 9:45 AM CDT 07/17/2023 1:35 PM CDT Marylou Garner MD CHEMISTRY [facility] [address] [place] [address], from Last 3 Months or Most Recently Relevant to Health Maintenance Additional Health Concerns Infection Onset Date Last Indicated ESBL Comment:09/18/2018 Order contact precautions. +MDRO ESBL of a wound. Isolation is no longer needed once wound is healed or infection treated. 09/18/2018 09/18/2018 MRSA Comment:Order contact precautions. Nares surveillance cultures needed to clear patient if <12 months since positive culture. If >12 months since positive culture, precautions can be discontinued if patient has no MRSA risk factors. #1 +MRSA left metatarsal bone 11/23/2019 exclusions for contact precaution discontinuation (if > 12 months since positive culture): resides in acute/long term care phlebotomist care, receiving hemodialysis, has chronic open wounds/skin damage, has long-term percutaneous indwelling medical devices Exclusions for nares collection (if <12 months since positive culture) include all of the previous exclusions plus patients on antibiotics 7 days prior to collection 11/23/2019 11/23/2019 Advance Directives * Full Code (Latest Code Status on File) Date Activated Date Inactivated Comments 11/23/2019 10:43 AM 11/26/2019 6:54 PM Question Answer Comments Code Status Discussion: Discussed * Full Code Date Activated Date Inactivated Comments 03/15/2019 8:13 AM 03/15/2019 2:52 PM Question Answer Comments Code Status Discussion: Discussed * Full Code Date Activated Date Inactivated Comments 03/15/2019 8:12 AM 03/15/2019 8:13 AM Question Answer Comments Code Status Discussion: Discussed * Full Code Date Activated Date Inactivated Comments 09/17/2018 9:15 PM 09/23/2018 12:15 AM * Full Code Date Activated Date Inactivated Comments 07/21/2016 6:02 PM 07/28/2016 2:14 PM Question Answer Comments Code Status Discussion: Not Discussed Care Teams Non Garment Sewing Machine Operator Relationship Specialty Start Date End Date Osito Razo MD [address] [place] [address] [place] [id number] PCP - General Internal Medicine 07/14/15
[2023-10-28 09:02] VITALS: BP 165/113
[2023-10-28 09:31] VITALS: BP 164/107
== END 2023-10-28 10:06 | disposition home or self-care (01) ==
PROVIDERS: Emergency Provider Family Medicine
DX: H53.8 Other visual disturbances (principal); E11.9 Type 2 diabetes mellitus without complications; I10 Essential (primary) hypertension
CPT/HCPCS: 99283; 99284

== ENCOUNTER 2024-10-13 07:06 | Outpatient (CLI) | payer MEDICAID, SELFPAY | END 2024-10-13 07:07 | disposition home or self-care (01) | LOC: AMB 10-14 15:09 | PROVIDERS: Visit Provider Family Medicine | DX: R50.9 Fever, unspecified (principal); R42 Dizziness and giddiness | CPT/HCPCS: A0425; A0427 ==

== ENCOUNTER 2024-10-13 07:34 | Emergency (ER) | payer MEDICAID, SELFPAY ==
[2024-10-13] VITALS (19 sets, daily range): BP systolic 118–143; BP diastolic 68–88; PULSE 61–67; RESP 16; TEMP 32.8–35.8; O2SAT 94–100
--- OUTSIDE RECORDS SUMMARY | 2024-10-13 07:37 | XMS_ITS | Clinical Summary ---
Author Organization [facility] [place] Address [address] [place] [address] Phone Care Team Providers Care Siding Mechanic Name Role Phone Unavailable Primary Care Provider Unavailabl e Allergies No known active allergies Medications amLODIPine (NORVASC) 5 MG tablet Take 5 mg by mouth in the morning. Active aspirin (ST RAFIQ) 81 MG EC tablet Take 81 mg by mouth in the morning. Active atenolol (TENORMIN) 25 MG tablet Take 25 mg by mouth in the morning. 5 Active FLUoxetine (PROzac) 10 MG capsule Take 10 mg by mouth 1 (one) time each day 4 Active furosemide (LASIX) 20 MG tablet TAKE TWO TABLETS BY MOUTH EVERY MORNING AND TAKE TWO TABLETS IN THE EVENING 5 Active glipiZIDE (GLUCOTROL) 10 MG tablet Take 10 mg by mouth in the morning and 10 mg in the evening. 4 Active HONEY PO Apply topically 4 Active hydrALAZINE (APRESOLINE) 10 MG tablet Take 10 mg by mouth in the morning and 10 mg at noon and 10 mg in the evening and 10 mg before bedtime. 5 Active pioglitazone (ACTOS) 45 MG tablet Take 45 mg by mouth in the morning. 4 Active Active Problems Problem Noted Date Diagnosed Date Chronic kidney disease, stage 4 (severe) 025 Overview (04/20/2024): Baseline creatinine in the mid ones in [id number]; mid twos-3 range from 2022- 2023; and recently in the high 30s-fours range. He has longstanding albuminuria documented as far back as 2015 at 346 mg/g, 2700 mg/g in 2020 and most recently roughly 10,000 mg/g in July 2023. Urinalysis from April 2024 with moderate occult blood on the order of 3-5 RBCs per high-powered field and 3+ protein. CT of the chest from 2017 revealing both kidneys present in the upper abdomen without hydronephrosis. Assessment & Plan (04/20/2024 12:59 PM ASSISTANT AT SURGERY): Improvement. Namely after stopping ARB. Would not restart any RAAS inhibitor or add SGLT 2 inhibitor in this patient based on compromised GFR. Obviously it is our hope that his GFR may in fact improve off the losartan. Time will tell. Continue current antihypertensives and diuretic support as ordered at this time. We touched upon preparation for renal replacement therapy but we will determine where his GFR settles first. We touched upon preparation for ESRD in the form of dialysis as well as transplantation. I gave him the [place] written website as provided by the [employer] kidney [employer]. Obviously, Fadi's long-term renal prognosis is grim. Further workup unnecessary. 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 Will tentatively plan to see Fadi again in 3 months. Type 2 diabetes mellitus wit h diabetic chronic kidney disease 04/20/2024 Overview (04/20/2024): Several decade history of diabetes mellitus type 2. Known + DMR OU Assessment & Plan (04/20/2024 12:56 PM ASSISTANT AT SURGERY): Stable. With established triopathy. Most recent A1c 6.7 in March 2024. Due to compromised GFR I would not recommend addition of SGLT2 inhibitor. With respect to the pioglitazone he is on if he begins experiencing issues with lower extremity edema and may be reasonable to consider adjusting away from this class of medicine. Defer further to PCP. Hypertensive chronic kidney disease, benign, with chronic kidney disease stage I through stage IV, or unspecified 04/20/2024 Assessment & Plan (04/20/2024 12:56 PM ASSISTANT AT SURGERY): Stable. Blood pressure recheck on exam today was 135/75. No further recommendations at this time. We need to keep in mind that patient has significant small vessel disease and requires slightly elevated perfusion pressure therefore I would not over manage his blood pressure control. Anemia in chronic kidney disease 04/20/2024 Assessment & Plan (04/20/2024 12:59 PM ASSISTANT AT SURGERY): Stable. Hemoglobin values have been in the 10 or so range. January 2024 value was 10.4. Hemoglobin most recently 9.2 g/dL. Follow. Hold off on LUIS administration at this time. Peripheral vascular disease 04/20/2024 Overview (04/20/2024): Remote L TMA. Right 4th toe amputation, DOS 11/20/20 +MDRO 09/18/2018, right foot wound, ESBL+ Proteus mirabilis +MRSA left metatarsal bone 11/23/2019 Assessment & Plan (04/20/2024 12:57 PM ASSISTANT AT SURGERY): Stable. Long history of lower extremity ulcers and amputation requirement. No open wounds or ulcers per patient report. He states that he follows on a regular basis with podiatry. Chronic metabolic acidosis 04/20/2024 Assessment & Plan (04/20/2024 12:57 PM ASSISTANT AT SURGERY): Stable. Continue current oral sodium bicarbonate. Encounters Date Type Department Care Team Description 10/11/2024 Orders Only [facility] [address] [facility] [address] [place] [address] Shabbir Bronson MD 07/22/2024 Office Communication [facility] [address] [facility] [address] [place] [address] Giorgi Hickman MD from Last 3 Months Social History Tobacco Use Types Packs/Day Years Used Date Smoking Tobacco: Never Smokeless Tobacco: Never Tobacco Cessation:Counseling Given: Not Answered Alcohol Use Standard Drinks/Week Comments Not Currently 0 (1 standard drink = 0.6 oz pur e alcohol) 1.5 years sober Sex and Gender Information Value Date Recorded Sex Assigned at Not on file Legal Sex Male 11:32 AM EST Gender Identity Not on file Sexual Orientation Not on file Last Filed Vital Signs Vital Sign Reading Time Taken Comments Blood Pressure 160/88 04/20/2024 12:03 PM ASSISTANT AT SURGERY Pulse 80 04/20/2024 12:03 PM ASSISTANT AT SURGERY Temperature - - Respiratory Rate - - Oxygen Saturation - - Inhaled Oxygen Concentration - - Weight 98.9 kg (218 lb) 04/20/2024 12:03 PM ASSISTANT AT SURGERY Height 157.5 cm (5' 2) 04/20/2024 12:03 PM ASSISTANT AT SURGERY Body Mass Index 39.87 04/20/2024 12:03 PM ASSISTANT AT SURGERY Plan of Treatment Health Maintenance Due Date Last Done Comments Pneumococcal Vaccine: Peds ( 0 to 5 Years) and At-Risk Patients (6 to 49 Years) (1 of 2 - PCV) 07/19/1994 Hepatitis B Vaccine (1 of 5 - Risk Dialysis 4-dose series) 1995 Diabetes: Ophthalmology Exam 04/14/2024 Diabetes: Pedal Pulse Checked 04/14/2024 Diabetes: Sensory Foot Exam 04/14/2024 Diabetes: Visual Foot Exam 04/14/2024 Diabetes: Hemoglobin A1C 06/08/2024 03/10/2024 Colorectal Cancer Screening: Annual FOBT 07/19/2024 Colorectal Cancer Screening: Colonoscopy 07/19/2024 Colorectal Cancer Screening: Sigmoidoscopy 07/19/2024 Influenza Vaccine (#1) 2024 Procedures Procedure Name Priority Date/Time Associated Diagnosis Comments TRACE ELEMENTS Routine 10/11/2024 HD KINETICS Routine 10/11/2024 POST CHEMISTRY Routine 10/11/2024 SPECIAL CHEMISTRY Routine 10/11/2024 CHEMISTRY Routine 10/11/2024 HEMATOLOGY Routine 10/11/2024 IMMUNO CHEMISTRY Routine 10/11/2024 CHEMISTRY Routine 10/11/2024 from Last 3 Months Results * HD KINETICS (10/11/2024) % Urea Reduction 77 65 - 80 % [facility] 10/11/2024 10/12/2024 2:1 9 AM CDT Narrative Resulting Agency Comment Specimen source: Plasma Shabbir Bronson MD LAB BLOOD ORDERABLES Final Re sult Performing Organization Address [facility] de Phone Number [facility] See order comments or contact performing lab Unknown, [place] * (ABNORMAL) SPECIAL CHEMISTRY (10/11/2024) Folate 8.6 ng/mL [facility] Comment: Reference Range: Deficient: <3.4 ng/mL Indeterminate: 3.4-5.4 ng/mL Normal: >5.4 ng/mL Vitamin B-12 729 211 - 911 pg/mL [facility] Vitamin D, 25-OH, Total 6.6(L) 30.0 - 100.0 ng/mL [facility] Comment: Please Note: Effective March 11, 2021, the methodology for this test has changed to the SIEMENS ATELLLumatix method 10/11/2024 10/12/2024 2:3 6 AM CDT Narrative Resulting Agency Comment Specimen source: Serum Shabbir Bronson MD LAB BLOOD BANK TEST ORDERABLE S Final Result Performing Organization Address [facility] Phone Number [facility] See order comments or contact performing lab Unknown, [place] * POST CHEMISTRY (10/11/2024) Pathologist [facility] BUN Post Dialysis 16 6 - 19 mg/dL [facility] 10/11/2024 10/12/2024 2:1 9 AM CDT Narrative [facility] - 10/12/2024 Unless otherwise specified, test(s) performed at: [facility], [address] [place] [address], [place] [address] ATMOSPHERIC PHYSICS PROFESSOR: Rey Thompson M.D., Ph.D For any questions, please call customer service at FREQUENCY:OTHER Resulting Agency Comment Specimen source: Plasma Shabbir Bronson MD LAB BLOOD ORDERABLES Final Re sult Performing Organization Address [facility] de Phone Number [facility] See order comments or contact performing lab Unknown, [place] * IMMUNO CHEMISTRY (10/11/2024) Hep B Surface Ag Negative Negative [facility] Hepatitis B Surface Ab <10 mIU/mL [facility] Comment: Reference Range: <10 mIU/mL Non-Immune >=10 mIU/mL Immune The magnitude of the measured result above 10 mIU/mL is not indicative of the total amount of antibody present. Custom Exception Hep B Core Total Ab Negative Negative [facility] Comment: Hep B Core Ab, Total appears during the acute infection stage and remains reactive/positive throughout the recovery stage. The above test result was obtained using [employer] IM chemiluminescent method. Results obtained with different assay methods or kits cannot be used interchangeably. 10/11/2024 10/12/2024 2:2 4 AM CDT Narrative Resulting Agency Comment Specimen source: Plasma Shabbir Bronson MD LAB BLOOD ORDERABLES Final Re sult [facility] See order comments or contact performing lab Unknown, [place] * TRACE ELEMENTS (10/11/2024) Pathologist [facility] Aluminum <5 0 - 10 mcg/L [facility] Comment: This test was developed and its performance characteristics determined by [facility]. It has not been cleared or approved by the FDA. The laboratory is regulated under CLIA as qualified to perform high complexity testing. This test is used for clinical purposes. It should not be regarded as investigational or for research. 10/11/2024 10/12/2024 4:1 2 AM CDT Narrative [facility] - 10/12/2024 Unless otherwise specified, test(s) performed at: [facility], [address] [place] [address], [place] [address] ATMOSPHERIC PHYSICS PROFESSOR: Rey Thompson M.D., Ph.D For any questions, please call customer service at FREQUENCY:OTHER Resulting Agency Comment Specimen source: Serum Shabbir Bronson MD LAB BLOOD ORDERABLES Final Re sult [facility] See order comments or contact performing lab Unknown, [place] * HEMATOLOGY (10/11/2024) Pathologist [facility] Neutrophils 60.4 40.0 - 75.0 % [facility] Lymphocytes Relative 19.5 19.0 - 48.0 % [facility] Monocytes 9.6 3.0 - 10.0 % [facility] Eosinophils Relative 6.7 0.0 - 7.0 % [facility] Basophils Relative 1.0 0.0 - 1.5 % [facility] LETI 2.9 0.0 - 4.0 % [facility] Platelets 261 130 - 400 1000/mcL [facility] 10/11/2024 10/12/2024 2:3 6 AM CDT Narrative [facility] - 10/12/2024 Unless otherwise specified, test(s) performed at: [facility], [address] [place] [address], [place] [address] ATMOSPHERIC PHYSICS PROFESSOR: Rey Thompson M.D., Ph.D For any questions, please call customer service at FREQUENCY:OTHER Resulting Agency Comment Specimen source: Blood us Shabbir Bronson MD LAB BLOOD ORDERABLES Final Re sult [facility] See order comments or contact performing lab Unknown, [place] * (ABNORMAL) [facility] Chemistry (10/11/2024) Only the most recent of2 resultswithin the time period is included. BUN 70(H) 6 - 19 mg/dL [facility] Creatinine 8.88(H) 0.60 - 1.30 mg/dL [facility] BUN/Creatinine Ratio 7.9(L) 10.0 - 20.0 [facility] Sodium 131(L) 136 - 145 mEq/L [facility] Potassium 4.2 3.5 - 5.1 mEq/L [facility] Chloride 94(L) 96 - 108 mEq/L [facility] Bicarbonate (CO2) 23 20 - 31 mEq/L [facility] Calcium 7.5(L) 8.7 - 10.4 mg/dL [facility] Comment: Please note change in reference range. Corrected Calcium 8.5(L) 8.7 - 10.4 mg/dL [facility] Comment: Corrected Calcium is not equivalent to measured Ionized Calcium. Phosphorus 7.7(H) 2.6 - 4.5 mg/dL [facility] Calcium Phosphorus Product 58(H) 0 - 54 [facility] Calcium Phosporus Product, Cor 65(H) 0 - 54 [facility] Alkaline Phosphatase 110 40 - 129 U/L [facility] Total Protein 5.2(L) 6.0 - 8.5 g/dL [facility] Albumin 2.8(L) 3.5 - 5.2 g/dL [facility] Globulin, Total 2.4 2.0 - 4.0 g/dL [facility] A/G Ratio 1.2 1.0 - 2.0 [facility] Magnesium 1.7 1.6 - 2.6 mg/dL [facility] Comment: Custom Exception Ferritin 114 22 - 322 ng/mL [facility] Iron 24(L) 45 - 160 mcg/dL [facility] UIBC 215 155 - 355 mcg/dL [facility] TIBC 239 185 - 515 mcg/dL [facility] Iron Saturation (TSat) 10(L) 20 - 55 % [facility] 10/11/2024 10/12/2024 2:3 6 AM CDT Narrative [facility] - 10/12/2024 Unless otherwise specified, test(s) performed at: [facility], [address] [place] [address], [place] [address] ATMOSPHERIC PHYSICS PROFESSOR: Rey Thompson M.D., Ph.D For any questions, please call customer service at FREQUENCY:OTHER Resulting Agency Comment Specimen source: Serum us Shabbir Bronson MD LAB BLOOD ORDERABLES Final Re sult [facility] See order comments or contact performing lab Unknown, [place] from Last 3 Months [id number] [address] Medicaid [place] [phone]
--- OUTSIDE RECORDS SUMMARY | 2024-10-13 07:37 | XMS_ITS | Encounter Summary ---
Author Organization [facility] [place] Address [address] [place] [address] Care Team Providers Care Training Executive Name Role Phone Unavailable Primary Care Provider Unavailabl e Encounter Details Date Type Department Care Team (Late st Contact Info) Description 10/11/2024 Orders Only [facility] [address] [place] [address] Shabbir Bronson MD [address] [place] [address] Social History Tobacco Use Types Packs/Day Years Used Date Smoking Tobacco: Never Smokeless Tobacco: Never Alcohol Use Standard Drinks/Week Comments Not Currently 0 (1 standard drink = 0.6 oz pur e alcohol) 1.5 years sober Sex and Gender Information Value Date Recorded Sex Assigned at Not on file Legal Sex Male 11:32 AM EST Gender Identity Not on file Sexual Orientation Not on file documented as of this encounter Plan of Treatment Not on file documented as of this encounter Procedures Procedure Name Priority Date/Time Associated Diagnosis Comments HD KINETICS Routine 10/11/2024 SPECIAL CHEMISTRY Routine 10/11/2024 POST CHEMISTRY Routine 10/11/2024 IMMUNO CHEMISTRY Routine 10/11/2024 TRACE ELEMENTS Routine 10/11/2024 HEMATOLOGY Routine 10/11/2024 CHEMISTRY Routine 10/11/2024 CHEMISTRY Routine 10/11/2024 documented in this encounter Results * TRACE ELEMENTS (10/11/2024) Aluminum <5 0 - 10 mcg/L [facility] Comment: This test was developed and its performance characteristics determined by [facility]. It has not been cleared or approved by the FDA. The laboratory is regulated under CLIA as qualified to perform high complexity testing. This test is used for clinical purposes. It should not be regarded as investigational or for research. 10/11/2024 10/12/2024 4:1 2 AM CDT Narrative [facility] - 10/12/2024 Unless otherwise specified, test(s) performed at: [facility], [address] [place] [address], [place] [address] BIOSTATISTICS MANAGER: Rey Thompson M.D., Ph.D For any questions, please call customer service at FREQUENCY:OTHER Resulting Agency Comment Specimen source: Serum Shabbir Bronson MD LAB BLOOD ORDERABLES Final Re sult Performing Organization Address [facility]/ZIP Co de Phone Number [facility] See order comments or contact performing lab Unknown, [place] * HD KINETICS (10/11/2024) Pathologist [facility] % Urea Reduction 77 65 - 80 % [facility] 10/11/2024 10/12/2024 2:1 9 AM CDT Narrative Resulting Agency Comment Specimen source: Plasma Shabbir Bronson MD LAB BLOOD ORDERABLES Final Re sult [facility] See order comments or contact performing lab Unknown, [place] * POST CHEMISTRY (10/11/2024) BUN Post Dialysis 16 6 - 19 mg/dL [facility] 10/11/2024 10/12/2024 2:1 9 AM CDT Narrative [facility] - 10/12/2024 Unless otherwise specified, test(s) performed at: [facility], [address] [place] [address], [place] [address] BIOSTATISTICS MANAGER: Rey Thompson M.D., Ph.D For any questions, please call customer service at FREQUENCY:OTHER Resulting Agency Comment Specimen source: Plasma Shabbir Bronson MD LAB BLOOD ORDERABLES Final Re sult Performing Organization Address [facility] de Phone Number [employer] [facility] See order comments or contact performing lab Unknown, [place] * (ABNORMAL) SPECIAL CHEMISTRY (10/11/2024) Pathologist [facility] Folate 8.6 ng/mL [facility] Comment: Reference Range: Deficient: <3.4 ng/mL Indeterminate: 3.4-5.4 ng/mL Normal: >5.4 ng/mL Vitamin B-12 729 211 - 911 pg/mL [facility] Vitamin D, 25-OH, Total 6.6(L) 30.0 - 100.0 ng/mL [facility] Comment: Please Note: Effective March 11, 2021, the methodology for this test has changed to the SIEMENS ATELLI-Sh[employer] method 10/11/2024 10/12/2024 2:3 6 AM CDT Narrative Resulting Agency Comment Specimen source: Serum Shabbir Bronson MD LAB BLOOD BANK TEST ORDERABLE S Final Result Performing Organization Address [facility] de Phone Number [employer] [facility] See order comments or contact performing lab Unknown, [place] * (ABNORMAL) [facility] (10/11/2024) Pathologist [facility] BUN 70(H) 6 - 19 mg/dL [facility] [...] 10/12/2024 Unless otherwise specified, test(s) performed at: [facility], [address] [place] [address], [place] [address] BIOSTATISTICS MANAGER: Rey Thompson M.D., Ph.D For any questions, please call customer service at FREQUENCY:OTHER Resulting Agency Comment Specimen source: Serum us Shabbir Bronson MD LAB BLOOD ORDERABLES Final Re sult [facility] See order comments or contact performing lab Unknown, [place] * HEMATOLOGY (10/11/2024) Neutrophils 60.4 40.0 - 75.0 % [facility] [...] 10/12/2024 Unless otherwise specified, test(s) performed at: [facility], [address] [place] [address], [place] [address] BIOSTATISTICS MANAGER: Rey Thompson M.D., Ph.D For any questions, please call customer service at FREQUENCY:OTHER Resulting Agency Comment Specimen source: Blood Shabbir Bronson MD LAB BLOOD ORDERABLES Final Re sult Performing Organization Address [facility] Co de Phone Number [facility] See order comments or contact performing lab Unknown, [place] * IMMUNO CHEMISTRY (10/11/2024) Pathologist [facility] Hep B Surface Ag Negative Negative [facility] Hepatitis B Surface Ab <10 mIU/mL [facility] Comment: Reference Range: <10 mIU/mL Non-Immune [...] ORDERABLES Final Re sult Performing Organization Address [facility] Co de Phone Number [facility] See order comments or contact performing lab Unknown, [place] * (ABNORMAL) [facility] (10/11/2024) PTH 938(H) 16 - 80 pg/mL [facility] 10/11/2024 10/12/2024 2:2 4 AM CDT Narrative [facility] - 10/12/2024 Unless otherwise specified, test(s) performed at: [facility], [address] [place] [address], [place] [address] BIOSTATISTICS MANAGER: Rey Thompson M.D., Ph.D For any questions, please call customer service at FREQUENCY:OTHER Resulting Agency Comment Specimen source: Plasma us Shabbir Bronson MD LAB BLOOD ORDERABLES Final Re sult [facility] See order comments or contact performing lab Unknown, [place] documented in this encounter Visit Diagnoses Not on filedocumented in this encounter
--- OUTSIDE RECORDS SUMMARY | 2024-10-13 07:37 | XMS_ITS | Clinical Summary ---
Author Organization [facility] Address [address] [place] [id number] Care Team Providers Care Art Coordinator Name Role Phone Giorgi Hickman MD Unavailable [phone] Josephine Gregory RN, ELECTRIC NEEDLE SPECIALIST Primary Care Provide r [facility], [place] Unavailable [phone] Allergies No known active allergies Medications blood-glucose meterIndicatio ns:Uncontrolle d type 2 diabetes mellitus with hyperglycemia, unspecified group home insulin use status Dispense meter, test strips, lancets covered by pt ins. E11.65 NIDDM type II, uncontrolled - Test 2 times/day. Reason: High A1C 1 Each 6 3:15 PM CDT 10/25/19 16 Active blood sugar diagnostic (GLUCOCARD VITAL TEST STRIPS) strip Test 2 times/day. 50 Each 6 3:15 PM CDT 10/25/19 16 Active lancets (TRUEPLUS LANCETS) 33 gauge misc Test 2 times/day. 100 Each 6 3:15 PM CDT 10/25/19 16 Active amLODIPine (NORVASC) 5 mg tablet Take 5 mg by mouth at bedtime. Active pen needle, diabetic 31 gauge x 5/16Indicatio ns:Type 2 diabetes mellitus with diabetic toe ulcer (HC) For administering insulin at home. 100 Each 0 4:34 PM CDT 11/26/19 20 Active durable medical equipment (DME)Indicatio ns:History of partial amputation of toe of left foot (HC) DJO 01esm franck walk airselect std short medium, length of need 99 months 1 Each 01/06/20 Active durable medical equipment (DME)Indicatio ns:Ulcer of left foot, unspecified ulcer stage (HC),Diabetic ulcer of left midfoot associated with type 2 diabetes mellitus, with fat layer exposed (HC) SQUARED TOE POST OP SHOE, XS, REF: [phone] 1 Each 01/08/20 24 Active durable medical equipment (DME)Indicatio ns:Diabetic ulcer of right foot associated with diabetes mellitus due to underlying condition, unspecified part of foot, unspecified ulcer stage (HC) [phone] Squared Tor Post Op shoe, small 1 Each 02/05/20 24 Active glipiZIDE (GLUCOTROL) 10 mg tablet Take 10 mg by mouth once daily before a meal. 12/25/19 24 Active aspirin (ECOTRIN) 81 mg enteric coated tablet Take 81 mg by mouth once daily. Active honey (MediHoney (honey)) 80 % topical gel Apply topically to affected area(s) once daily. Apply pea sized amount in circular motion around wound. Apply to foot wound Active carvediloL (COREG) 12.5 mg tabletIndicati ons:Hypertensi on Take 1 Tablet (12.5 mg) by mouth two times daily with meals. 60 Tablet 5 3:30 PM CDT 10/09/19 25 Active doxycycline 100 mg tabletIndicati ons:bone infection Take 1 Tablet (100 mg) by mouth two times daily before meals for 6 days. 12 Tablet 5 3:30 PM CDT 10/09/19 25 025 Active furosemide (LASIX) 80 mg tabletIndicati ons:Hypertensi on Take one tablet (80 mg) by mouth every Friday, Friday and Friday after dialysis 12 Tablet 5 3:30 PM CDT 10/10/19 25 Active levoFLOXacin (LEVAQUIN) 500 mg tabletIndicati ons:bone infection Take 1 Tablet (500 mg) by mouth every 48 hours for 6 days. 3 Tablet 5 3:30 PM CDT 10/11/19 25 025 Active honey (MediHoney, honey,) 80 % topical gelIndications :Diabetic ulcer of left midfoot associated with type 2 diabetes mellitus, with fat layer exposed (HC) Apply topically to affected area(s). 28 mL 2 01/22/20 24 025 Discontinued (Pharmacist change per medication history (E-cancel not sent)) pioglitazone (ACTOS) 45 mg tablet Take 45 mg by mouth once daily. 12/25/19 24 025 Discontinued (Pharmacist change per medication history (E-cancel not sent)) atenoloL (TENORMIN) 25 mg tabletIndicati ons:Hypertensi on Take 1 Tablet (25 mg) by mouth once daily. 30 Tablet 04/20/19 25 025 Discontinued (Pharmacist change per medication history (E-cancel not sent)) Active Problems Problem Noted Date Diagnosed Date End stage renal disease 10/05/2024 Type 2 diabetes mellitus with left diabetic foot ulcer 10/03/2024 Type 2 diabetes mellitus with right diabetic efren t ulcer 10/03/2024 Fluid overload 09/29/2024 Normocytic anemia 09/29/2024 Hypocalcemia 09/29/2024 Acute kidney injury superimposed on chronic kidn ey disease 09/29/2024 Elevated troponin 09/29/2024 Subacute osteomyelitis of left foot 11/23/2019 Mixed hyperlipidemia 11/23/2019 Bacteremia due to Staphylococcus aureus 09/21/19 Sepsis due to methicillin susceptible Staphyloco ccus aureus 09/20/2018 Septic arthritis of ankle or foot 09/18/2018 Foot abscess, right 09/18/2018 Osteomyelitis of ankle or foot, right, acute Bacterial sepsis 09/17/2018 Uncontrolled type 2 diabetes mellitus with foot ulcer, without long-term current use of insulin 07/27/2016 Type 2 diabetes mellitus with diabetic toe ulcer 07/25/2016 Nausea 07/25/2016 Hypertension 07/22/2016 Osteomyelitis of ankle or foot 07/21/2016 Diabetic ulcer of left foot associated with type 2 diabetes mellitus 10/21/2015 Overview (07/22/2016): I&D of right foot ulcer 10/2015 Type 2 diabetes mellitus wit hout complication, without long-term current use of insulin 03/03/2006 Gas gangrene of foot Resolved Problems Problem Noted Date Diagnosed Date Resolved Date CKD (chronic kidney disease) stage 5, GFR less than 15 ml/min 09/29/2024 09/29/2024 CKD (chronic kidney disease) stage 5, GFR less than 15 ml/min 04/14/2024 09/29/2024 Acute kidney injury 07/25/2016 10/06/19 Unavailability or inaccessib ility of healthcare facility 07/21/2016 07/22/2016 Abscess of right foot 10/21/20152016 Type 2 diabetes mellitus wit h foot ulcer and gangrene 10/21/2015 07/22/2016 Elevated C-reactive protein (CRP) 10/21/2015 07/22/2016 Cellulitis of foot 10/20/2015 7 Type II or unspecified type diabetes mellitus without mention of complication, not stated as uncontrolled 12/24/2005 07/22/2016 Encounters Date Type Department Care Team Description 10/05/2024 10:47 AM CDT Anesthesia Event [address] [address] Wilfredo Arias CRNA Destache, Mark Thomas, MD 10/05/2024 10:30 AM CDT - 10/05/2024 12:10 PM CDT Surgery [address] [address] Jesus Dowling, DPRonit RIGHT FOOT DEBRIDEMENT AND PARTIAL 4th RAY RESECTION 09/29/2024 7:03 PM CDT - 10/08/2024 4:53 PM CDT Hospital Encounter [address] [address] [facility], Hospitalist [facility] Angelo Pal MD [facility], Brian Wilhelm, MD [facility], David Awad MD Hypertension (Primary Dx); Other problems related to housing and economic circumstances; Low income; Subacute osteomyelitis of left foot (HC); End stage renal disease (HC) Discharge Disposition: Home Health 09/29/2024 6:51 AM CDT - 09/29/2024 5:59 PM CDT Emergency [address] [address] Nils Franco MD Johnson, Nicholas Charles, MD Ran, Renzhong, MD Acute renal failure, unspecified acute renal failure type (Primary Dx); Peripheral edema; Orthopnea; Anemia, unspecified type; Hypertension Discharge Disposition: Critical Access Hospital 09/29/2024 Travel from Last 3 Months Immunizations Immunization Administration Dates Next Due Influenza, IIV4 11/25/2019 [...] drink = 0.6 oz pur e alcohol) Social Connections Answer Date Recorded Do you often feel lonely or isolated from those around you? 0 09/29/2024 Financial Resource Strain Answer Date R ecorded Difficulty of Paying Living Expenses 1 04/14/2024 Difficulty of Paying Living Expenses 2 04/14/2024 Food Insecurity Answer Date Recorded Do you worry your food will run out before you are able to buy more? 1 09/29/2024 Transportation Needs Answer Date Record ed Does lack of transportation keep you from medica l appointments? 1 09/29/2024 Does lack of transportation keep you from work, meetings or getting things that you need? 1 09/29/2024 Housing Stability Answer Date Recorded What is your housing situation today? 1 09/29/2024 Interpersonal Safety Answer Date Record ed Are you being hit, kicked, p ushed or yelled at (see row info)? No 09/29/2024 Interpersonal Safety Abuse 12 - 18 Not on file 09/29/2024 Interpersonal Safety Ambulatory Vulnerability No t on file 09/29/2024 Utilities Answer Date Recorded Do you have trouble paying f or utilities (for example, heat, electricity, water, phone)? 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 Not on file Not on file Obstetrics History Last Filed Vital Signs Vital Sign Reading Time Taken Comments Blood Pressure 121/78 10/08/2024 12:33 PM CDT Pulse 71 10/08/2024 12:33 PM CDT Temperature 36.5 C (97.7 F) 10/08/2024 12:33 PM CDT Respiratory Rate 17 10/08/2024 12:3 3 PM CDT Oxygen Saturation 96% 10/08/2024 7:01 AM CDT Inhaled Oxygen Concentration - - Weight 82.4 kg (181 lb 10.5 oz) 10/08/2024 8:55 AM CDT Height 160 cm (5' 3) 09/29/2024 7:01 AM CDT Body Mass Index 32.18 09/29/2024 7:01 AM CDT Plan of Treatment Upcoming Encounters Date Type Department Care Team (Late st Contact Info) Description 10/26/2024 10:15 AM CDT Office Visit [facility] [address] [address] Oscar Bustamante, CAREN [address] [place] [address] Health Maintenance Due Date Last Done Comments Tetanus booster 07/19/1986 HIV for age 15-65 07/19/1990 Hepatitis B series for 19+ ( 1 of 3 - 19+ 3-dose series) 07/19/1994 Pneumococcal series for age 6-49 (1 of 2 - PCV) 07/19/1994 Depression screening for age 12+ 10/31/2016 11/01/19 16, 10/26/2015 BMI (ht and wt on same day) for age 18+ 08/04/2017 08/04/2016, 08/03/2016, 08/02/2016, Additional history exists Colonoscopy through age 75 07/19/2020 COVID-19 vaccine series (2023- season) 2023 05/23/2021, 07/06/2020, 06/07/2020 Influenza Vaccine (#1) 2024 11/25/2019 Lipids for age 45-75 07/15/2028 07/16/2023, 02/07/2022, 03/28/2021, Additional history exists Hepatitis C screening for ag e 18-79 Completed 09/30/2024 Medical Devices Implanted Type Area Movie Producer Device Identifier Shelf Expiration Date Model / Serial / Lot Mfwd 301 - [id number] Implanted:Qty: 2 on 10/24/2015 by Oscar Bustamante DPM at [facility] Right: Foot 06/30/2016 FWD 301 / / [id number] Description:Integra flowable wound matrix [id number] - [id number] Implanted:Qty: 1 on 10/24/2015 by Oscar Bustamante DPM at [facility] Right: Foot [employer] 05/31/2017 [id number] / / [id number] Description:PriMatrix 6cm x 6cm Procedures Procedure Name Priority Date/Time Associated Diagnosis Comments GLUCOSE METER Timed 10/08/2024 7:41 AM CDT GLUCOSE METER Timed 10/07/2024 9:01 PM CDT GLUCOSE METER Timed 10/07/2024 5:04 PM CDT GLUCOSE METER Timed 10/07/2024 11:58 AM CDT GLUCOSE METER Timed 10/07/2024 7:30 AM CDT PLATELET COUNT Early AM 10/07/2024 7:21 AM CDT HEMOGLOBIN Early AM 10/07/2024 7:21 AM CDT POTASSIUM Early AM 10/07/2024 7:21 AM CDT GLUCOSE METER Timed 10/06/2024 9:10 PM CDT GLUCOSE METER Timed 10/06/2024 4:49 PM CDT QFT MITOGEN PERFORMABLE Today 10/06/2024 1:14 PM CDT QFT TB2 PERFORMABLE Today 10/06/2024 1 :14 PM CDT QFT TB1 PERFORMABLE Today 10/06/2024 1 :14 PM CDT QUANTIFERON TB GOLD PLUS Today 10/06/2024 1:14 PM CDT QUANTIFERON TB GOLD PLUS Today 10/06/2024 1:14 PM CDT GLUCOSE METER Timed 10/06/2024 12:21 PM CDT GLUCOSE METER Timed 10/06/2024 7:51 AM CDT GLUCOSE METER Timed 10/05/2024 9:11 PM CDT XR FOOT 3 VIEWS RIGHT Routine 10/05/2024 5:47 PM CDT GLUCOSE METER Timed 10/05/2024 5:12 PM CDT GLUCOSE METER Timed 10/05/2024 12:51 PM CDT AEROBIC BACTERIAL CULTURE, STAIN Today 10/05/2024 12:22 PM CDT ANAEROBIC CULTURE Today 10/05/2024 12: 22 PM CDT PATH TISSUE EXAM Today 10/05/2024 12:0 3 PM CDT TISSUE CULTURE, STAIN (AEROBIC) Today 10/05/2024 12:02 PM CDT ANAEROBIC CULTURE Today 10/05/2024 12: 02 PM CDT AMPUTATION TOE Class E Urgent: within 7 days 10/05/2024 10:37 AM CDT RIGHT FOOT OSTEOMYELITIS Case Notes T/F - 75MINSAGITTAL SAW Special Needs HT - 5' 3 / 198 LBS GLUCOSE METER Timed 10/05/2024 10:14 AM CDT GLUCOSE METER Timed 10/05/2024 8:02 AM CDT GLUCOSE METER Timed 10/04/2024 9:06 PM CDT GLUCOSE METER Timed 10/04/2024 5:25 PM CDT GLUCOSE METER Timed 10/04/2024 12:46 PM CDT GLUCOSE METER Timed 10/04/2024 12:13 PM CDT CBC W PLT NO DIFF Early AM 10/04/2024 7:3 6 AM CDT PHOSPHORUS Early AM 10/04/2024 7:36 AM CDT BASIC METABOLIC PANEL Early AM 10/04/2024 7:36 AM CDT GLUCOSE METER Timed 10/03/2024 9:24 PM CDT GLUCOSE METER Timed 10/03/2024 5:39 PM CDT GLUCOSE METER Timed 10/03/2024 11:49 AM CDT SCAN-CARDIAC STRIP 10/03/2024 8: 20 AM CDT EXTRA TUBE LAVENDER Today 10/03/2024 7 :28 AM CDT BASIC METABOLIC PANEL Early AM 10/03/2024 7:28 AM CDT GLUCOSE METER Timed 10/03/2024 7:25 AM CDT GLUCOSE METER Timed 10/02/2024 9:17 PM CDT GLUCOSE METER Timed 10/02/2024 5:40 PM CDT US ARTERIAL LOWER EXTREMITY RIGHT Routine 10/02/2024 4:44 PM CDT MR FOOT LEFT WO Routine 10/02/2024 4:19 PM CDT MR FOOT RIGHT WO Routine 10/02/2024 4:19 PM CDT GLUCOSE METER Timed 10/02/2024 1:32 PM CDT SCAN-CARDIAC STRIP 10/02/2024 10 :51 AM CDT GLUCOSE METER Timed 10/02/2024 7:35 AM CDT CBC W PLT NO DIFF Early AM 10/02/2024 6:4 8 AM CDT PHOSPHORUS Early AM 10/02/2024 6:48 AM CDT BASIC METABOLIC PANEL Early AM 10/02/2024 6:48 AM CDT GLUCOSE METER Timed 10/01/2024 9:14 PM CDT XR FOOT 3 VIEWS RIGHT STAT 10/01/2024 8:55 PM CDT XR FOOT 3 VIEWS LEFT STAT 10/01/2024 8:54 PM CDT US ARTERIAL LOWER EXTREMITY W MALKA BILATERAL Routine 10/01/2024 7:28 PM CDT GLUCOSE METER Timed 10/01/2024 5:19 PM CDT ANAEROBIC CULTURE Today 10/01/2024 2:4 2 PM CDT AEROBIC BACTERIAL CULTURE, STAIN Today 10/01/2024 2:42 PM CDT BASIC METABOLIC PANEL Early AM 10/01/2024 12:57 PM CDT PHOSPHORUS Early AM 10/01/2024 12:57 PM CDT PTH,INTACT Early AM 10/01/2024 12:57 PM CDT GLUCOSE METER Timed 10/01/2024 12:12 PM CDT SCAN-CARDIAC STRIP 10/01/2024 8: 20 AM CDT GLUCOSE METER Timed 10/01/2024 7:45 AM CDT GLUCOSE METER Timed 09/30/2024 10:21 PM CDT GLUCOSE METER Timed 09/30/2024 5:46 PM CDT IR CENTRAL VENOUS CATHETER TUNNEL => 5Y INSERTION Routine 09/30/2024 2:40 PM CDT GLUCOSE METER Timed 09/30/2024 12:18 PM CDT IRON PLUS IRON BINDING CAP HAIDER 09/30/2024 12:03 PM CDT BASIC METABOLIC PANEL Today 09/30/2024 12:03 PM CDT EMPLOYEE ANTI HBS Today 09/30/2024 12: 03 PM CDT ANTI HBC Today 09/30/2024 12:03 PM CDT ANTI HCV Today 09/30/2024 12:03 PM CDT PROTIME-INR HAIDER 09/30/2024 12:03 PM CDT ECHO TTE COMPLETE WO CONTRAST Routine 09/30/2024 10:00 AM CDT SCAN-CARDIAC STRIP 09/30/2024 9: 07 AM CDT GLUCOSE METER Timed 09/30/2024 7:50 AM CDT GLUCOSE METER Timed 09/29/2024 9:20 PM CDT SCAN-CARDIAC STRIP 09/29/2024 8: 24 PM CDT URINALYSIS MICROSCOPIC STAT 09/29/2024 11:08 AM CDT UA W/ SEDIMENT EXAM REFLEXED PER CRITERIA STAT 09/29/2024 11:08 AM CDT US RENAL AND BLADDER COMPLETE STAT 09/29/2024 9:42 AM CDT HBSAG (HBS) HAIDER 09/29/2024 8:53 AM CDT TROPONIN T (HS) ONE TIME Timed 09/29/2024 8:53 AM CDT XR CHEST 2 VIEWS PA AND LATERAL STAT 09/29/2024 7:45 AM CDT FERRITIN HAIDER 09/29/2024 7:05 AM CDT CBC WITH AUTO DIFFERENTIAL STAT 09/29/2024 7:05 AM CDT TROPONIN T (HS) ACUTE W/2HR REFLEX STAT 09/29/2024 7:05 AM CDT PRO-BNP STAT 09/29/2024 7:05 AM CDT HEPATIC FUNCTION PANEL STAT 09/29/2024 7:05 AM CDT BASIC METABOLIC PANEL STAT 09/29/2024 7:05 AM CDT CBC WITH AUTO DIFFERENTIAL STAT 09/29/2024 7:05 AM CDT EKG 12 LEAD STAT 09/29/2024 6:58 AM CDT LIPID PANEL Routine 07/16/2023 9:45 AM CDT from Last 3 Months or Most Recently Relevant to Health Maintenance Results * GLUCOSE METER (10/08/2024 7:41 AM CDT) Only the most recent of35 resultswithin the time period is included. GLUCOSE METER 97 65 - 100 mg/dL 10/08/2024 7:42 AM CDT [facility] Blood BLOOD SPECIMEN / Unknown 10/08/2024 7:41 AM CDT 10/08/2024 7:42 AM CDT David Kiran MD CHEMISTRY Final Res ult Performing Organization Address [facility]/ZIP Co de Phone Number [facility] SENDOUT INTERNAL ZIP [address] [place] [phone] * PLATELET COUNT (10/07/2024 7:21 AM CDT) PLATELET COUNT 230 140 - 440 thou/cu mm 10/07/2024 7:32 AM CDT [facility] MPV 10.1 6.5 - 11.0 fL 10/07/2024 7:32 AM CDT [facility] Blood BLOOD SPECIMEN / Unknown Venipuncture / Unknown 10/07/2024 7:21 AM CDT 10/07/2024 7:27 AM CDT us David Kiran MD HEMATOLOGY Final Res ult Performing Organization Address [facility]/ZIP Co de Phone Number [facility] SENDOUT INTERNAL ZIP [address] [place] [address] * (ABNORMAL) HEMOGLOBIN (10/07/2024 7:21 AM CDT) HEMOGLOBIN 7.8(L) 13.5 - 17.5 g/dL 10/07/2024 7:32 AM CDT [facility] MCV 91 80 - 100 fL 10/07/2024 7:32 AM CDT [facility] Blood BLOOD SPECIMEN / Unknown Venipuncture / Unknown 10/07/2024 7:21 AM CDT 10/07/2024 7:27 AM CDT Eric Lucero MD HEMATOLOGY Final Res ult Performing Organization Address City/[facility]/ZIP Co de Phone Number [facility] SENDOUT INTERNAL ZIP [address] [place] [phone] * POTASSIUM (10/07/2024 7:21 AM CDT) POTASSIUM 4.5 3.5 - 5.1 mmol/L 10/07/2024 7:44 AM CDT [facility] Blood BLOOD SPECIMEN / Unknown Venipuncture / Unknown 10/07/2024 7:21 AM CDT 10/07/2024 7:27 AM CDT Eric Lucero MD CHEMISTRY Final Res ult [facility] SENDOUT INTERNAL ZIP [address] [place] [address] * QFT MITOGEN PERFORMABLE (10/06/2024 1:14 PM CDT) MITOGEN 0.18 IU/mL 10/08/2024 10:17 AM CDT [facility] Blood BLOOD SPECIMEN / Unknown Venipuncture / Unknown 10/06/2024 1:14 PM CDT 10/06/2024 1:22 PM CDT Jovanni Johnson MD CHEMISTRY Final Resul t Performing Organization Address City/[facility]/ZIP Co de Phone Number [facility] [address] [place] [address], [place] * QFT TB2 PERFORMABLE (10/06/2024 1:14 PM CDT) TB2 0.06 IU/mL 10/08/2024 10:17 AM CDT [facility] Blood BLOOD SPECIMEN / Unknown Venipuncture / Unknown 10/06/2024 1:14 PM CDT 10/06/2024 1:22 PM CDT Jovanni Johnson MD CHEMISTRY Final Resul t Performing Organization Address City/[facility]/ZIP Co de Phone Number [facility] [address] [place] [address], [place] * QFT TB1 PERFORMABLE (10/06/2024 1:14 PM CDT) TB1 0.06 IU/mL 10/08/2024 10:17 AM CDT [facility] Blood BLOOD SPECIMEN / Unknown Venipuncture / Unknown 10/06/2024 1:14 PM CDT 10/06/2024 1:22 PM CDT Jovanni Johnson MD CHEMISTRY Final Resul t [facility] [address] [place] [address], * (ABNORMAL) QUANTIFERON TB GOLD PLUS (10/06/2024 1:14 PM CDT) [facility] QFTP NIL 0.05 10/08/2024 11:25 AM CDT [facility] TB1 0.06 IU/mL 10/08/2024 11:25 AM CDT [facility] TB2 0.06 IU/mL 10/08/2024 11:25 AM CDT [facility] MITOGEN 0.18 IU/mL 10/08/2024 11:25 AM CDT [facility] QFTP TB AG1 - NIL 0.01 025 11:25 AM CDT [facility] TB1-NIL % OF NIL 20 % 10/09/19 25 11:25 AM CDT [facility] QFTP TB AG2 - NIL 0.01 025 11:25 AM CDT [facility] TB2-NIL % OF NIL 20 % 10/09/19 25 11:25 AM CDT [facility] QFTP MITOGEN - NIL 0.13 10/08/2024 11:25 AM CDT [facility] QFTP QUANTIFERON INTERPRETATION Indeterminate result due to low mitogen response(A) Negative 10/08/2024 11:25 AM CDT [facility] Blood BLOOD SPECIMEN / Unknown Venipuncture / Unknown 10/06/2024 1:14 PM CDT 10/06/2024 1:22 PM CDT Narrative [facility] - 10/08/2024 11:25 AM CDT M. tuberculosis infection status cannot be determined. Indeterminate results may be due to severe immunosuppression as found in chemotherapy or similar treatments. Repeat testing recommended. CAUTION: The performance of QuantiFERON-TB Gold Plus has not been evaluated in specimens from: - Individuals with impaired or altered immune factors (HIV infections, transplant patients, those receieving immunosuppressive drugs such as corticosteroids) and those with other clinical conditions (e.g., diabetes, hematological disorders). - Individuals younger than 17 years old. Refer to CDC website for testing recommendations in children 6-17 years old. - women us Jovanni Johnson MD CHEMISTRY Final Resul t [facility] [address] [place] [address], [place] * XR FOOT 3 VIEWS RIGHT (10/05/2024 5:47 PM CDT) Only the most recent of2 resultswithin the time period is included. Anatomical Region Laterality Modality FEET, FOOT R Computed Radiogr aphy 10/05/2024 5:47 PM CDT Impressions 10/05/2024 5:59 PM CDT Interval fourth ray amputation. Negative for postoperative purposes. Narrative 10/05/2024 5:59 PM CDT For Patients: As a result of the Cures Act, medical imaging exams and procedure reports are released immediately into your electronic medical record. You may view this report before your referring provider. If you have questions, please contact your health care provider. EXAM: XR FOOT 3 VIEWS RIGHT LOCATION: [facility] DATE: 10/05/2024 INDICATION: Post op evaluation COMPARISON: 10/01/2024 and 2024. Procedure Note Jordy Conde DO - 10/05/2024 For Patients: As a result of the Cures Act, medical imagingexams and procedure reports are released immediately into your electronicmedical record. You may view this report before your referring provider.If you have questions, please contact your health care provider. EXAM: XR FOOT 3 VIEWS RIGHT LOCATION: [facility] DATE: 10/05/2024 INDICATION: Post op evaluation COMPARISON: 10/01/2024 and 2024. IMPRESSION: Interval fourth ray amputation. Negative for postoperative purposes. us Jesus [facility] Final Resu lt * (ABNORMAL) AEROBIC BACTERIAL CULTURE, STAIN (10/05/2024 12:22 PM CDT) Only the most recent of2 resultswithin the time period is included. CULTURE RESULT(A) 10/08/2024 2:55 PM CDT [facility] CULTURE 1+ Mixed danna present 10/08/2024 2:55 PM CDT [facility] GRAM STAIN No PMNs 10/08/2024 2:55 PM CDT [facility] GRAM STAIN 1+ RBCs 10/08/2024 2:55 PM CDT [facility] GRAM STAIN No Epithelial cells 10/08/2024 2:55 PM CDT [facility] GRAM STAIN No organisms seen 10/08/2024 2:55 PM CDT [facility] GRAM STAIN Gram stain performed by [place], [place] 10/08/2024 2:55 PM CDT [facility] Swab (Right foot) Non-Blood / Unknown 10/05/2024 12:22 PM CDT 10/05/2024 1:23 PM CDT Narrative [facility] - 10/08/2024 2:55 PM CDT Mixed danna; No Staphylococcus aureus, beta-Streptococcus, Streptococcus pneumoniae, or Pseudomonas aeruginosa isolated. us Jesus [facility] Final Resu lt [facility] [address] [place] [address], [facility] SENDOUT INTERNAL ZIP [address] [place] [address] * ANAEROBIC CULTURE (10/05/2024 12:22 PM CDT) Only the most recent of3 resultswithin the time period is included. CULTURE Mixed anaerobic and aerobic organisms present: no further workup pending. 10/09/2024 9:09 AM CDT [facility] Swab (Right foot) Non-Blood / Unknown 10/05/2024 12:22 PM CDT 10/05/2024 1:23 PM CDT us Jesus Dowling DPM MICROBIOLOGY Final Resu lt [facility] [address] [place] [address], [place] * PATH TISSUE EXAM (10/05/2024 12:03 PM CDT) Case Report Pathology Report Case: [id number] Authorizing Provider: Jesus Dowling DPM Collected: 10/05/2024 1203 Ordering Location: [facility] Received: 10/05/2024 1256 Pathologist: Louis Louis MD Specimen: Right foot, RIGHT FOOT 4TH METATARSAL BONE - PATH 10/07/2024 5:50 PM CDT [facility] Final Diagnosis A) BONE, RIGHT FOOT FOURTH METATARSAL, AMPUTATION: 1. Bone with remodeling change, marrow edema, and chronic inflammation 2. Margin is viable and uninvolved 3. See comment 10/07/2024 5:50 PM CDT [facility] at 1749 CDT Comment The findings are not specific, but could be compatible with chronic osteomyelitis in the correct clinical context. Correlation with imaging and culture data is required for definitive diagnosis. 10/07/2024 5:50 PM CDT [facility] Clinical Information Right foot osteomyelitis 10/07/2024 5:50 PM CDT [facility] Gross Description A) Received fresh labeled with the patient's name and right foot fourth metatarsal, is a portion of metatarsal head, 6.0 x 2.0 x 1.5 cm. The true margin is previously inked blue. The opposing end is lined with dusky smooth round articular surface. The bony cut surface is dusky almendarez. No discrete lesion is identified. Technical Recruiter sections are submitted following decalcification: 1. En face bony margin 2. Opposing end including articular surface, perpendicular TTP 10/06/2024 10/07/2024 5:50 PM CDT [facility] Microscopic Description The final diagnosis is based on microscopic examination of appropriate sections of all specimens. 10/07/2024 5:50 PM CDT [facility] Additional Information Interpreted at [facility], Central Laboratory - [address], [place] [address] 10/07/2024 5:50 PM CDT [facility] Tissue (Right foot) 10/05/2024 12:03 PM CDT 10/05/2024 12:56 PM CDT Jesus Dowling DPM PATHOLOGY/CYTOLOGY Final R esult [facility] [address] [place] [address], [facility] SENDOUT [address] ZIP [address] [place] [phone] * (ABNORMAL) TISSUE CULTURE, STAIN (AEROBIC) (10/05/2024 12:02 PM CDT) CULTURE RESULT(A) 10/08/2024 1:58 PM CDT [facility] CULTURE 1+ Mixed danna present 10/08/2024 1:58 PM CDT [facility] GRAM STAIN 1+ PMNs 10/08/2024 1:58 PM CDT [facility] GRAM STAIN 1+ RBCs 10/08/2024 1:58 PM CDT [facility] GRAM STAIN No Epithelial cells 10/08/2024 1:58 PM CDT [facility] GRAM STAIN No organisms seen 10/08/2024 1:58 PM CDT [facility] GRAM STAIN Gram stain performed by [place], [place] 10/08/2024 1:58 PM CDT [facility] Bone (Right foot) Non-Blood / Unknown 10/05/2024 12:02 PM CDT 10/05/2024 1:23 PM CDT Narrative [facility] - 10/08/2024 1:58 PM CDT Mixed danna; No Staphylococcus aureus, beta-Streptococcus, Streptococcus pneumoniae, or Pseudomonas aeruginosa isolated. Jesus Dowling DPM MICROBIOLOGY Final Resu lt [facility] [address] [place] [address], [facility] SENDOUT INTERNAL ZIP [address] [place] [phone] * (ABNORMAL) CBC W PLT NO DIFF (10/04/2024 7:36 AM CDT) Only the most recent of2 resultswithin the time period is included. WHITE BLOOD COUNT 7.2 4.5 - 11.0 thou/cu mm 10/04/2024 7:[address] [facility] RED BLOOD COUNT 2.99(L) 4.30 - 5.90 mil/cu mm 10/04/2024 7:[address] [facility] HEMOGLOBIN 8.5(L) 13.5 - 17.5 g/dL 10/04/2024 7:[address] [facility] HEMATOCRIT 27.0(L) 37.0 - 53.0 % 10/04/2024 7:[address] [facility] MCV 90 80 - 100 fL 10/04/2024 7:[address] [facility] MCH 28.4 26.0 - 34.0 pg 10/04/2024 7:[address] [facility] MCHC 31.5(L) 32.0 - 36.0 g/dL 10/04/2024 7:[address] [facility] RDW 13.7 11.5 - 15.5 % 10/04/2024 7:[address] [facility] PLATELET COUNT 278 140 - 440 thou/cu mm 10/04/2024 7:[address] [facility] MPV 10.2 6.5 - 11.0 fL 10/04/2024 7:[address] [facility] NRBC 0.0 % 10/04/2024 7:[address] [facility] ABS NRBC 0.0 thou /cu mm 10/04/2024 7:[address] [facility] Blood BLOOD SPECIMEN / Unknown Venipuncture / Unknown 10/04/2024 7:36 AM CDT 10/04/2024 7:42 AM CDT Fadi Carson MD HEMATOLOGY Final Resul t Performing Organization Address City/[facility]/ZIP Co de Phone Number [facility] SENDOUT INTERNAL ZIP [address] [place] [phone] * (ABNORMAL) PHOSPHORUS (10/04/2024 7:36 AM CDT) Only the most recent of3 resultswithin the time period is included. PHOSPHORUS 5.3(H) 2.5 - 4.5 mg/dL 10/04/2024 8:04 AM CDT [facility] Blood BLOOD SPECIMEN / Unknown Venipuncture / Unknown 10/04/2024 7:36 AM CDT 10/04/2024 7:42 AM CDT Fadi Carson MD CHEMISTRY Final Resul t Performing Organization Address City/[facility]/ZIP Co de Phone Number [facility] SENDOUT INTERNAL ZIP [address] [place] [phone] * (ABNORMAL) BASIC METABOLIC PANEL (10/04/2024 7:36 AM CDT) Only the most recent of6 resultswithin the time period is included. SODIUM 140 136 - 145 mmol/L 10/04/2024 8:04 AM T [facility] POTASSIUM 4.3 3.5 - 5.1 mmol/L 10/04/2024 8:04 AM T [facility] CHLORIDE 105 98 - 107 mmol/L 10/04/2024 8:04 AM T [facility] CO2,TOTAL 24 22 - 29 mmol/L 10/04/2024 8:04 AM T [facility] ANION GAP 11 5 - 18 10/04/2024 8:04 AM T [facility] GLUCOSE 94 70 - 99 mg/dL 10/04/2024 8:04 AM T [facility] CALCIUM 7.9(L) 8.8 - 10.4 mg/dL 10/04/2024 8:04 AM T [facility] Comment: Reference ranges for this test were updated on 01/06/2024 to reflect our healthy population more accurately. Reference range changes are not retroactively applied to results, but previous results using the same methodology can be interpreted in the context of the new reference range. BUN 38(H) 6 - 20 mg/dL 10/04/2024 8:04 AM CDT [facility] CREATININE 6.99(H) 0.70 - 1.20 mg/dL 10/04/2024 8:04 AM T [facility] BUN/CREAT RATIO 5(L) 10 - 20 8:04 AM T [facility] eGFR 9(L) >90 mL/min/1. 73m2 10/04/2024 8:04 AM T [facility] Comment:As of 2021, eG FR is calculated by the CKD-EPI creatinine equation without race adjustment. eGFR can be influenced by muscle mass, exercise, and diet. The reported eGFR is an estimation only and is only applicable if the renal function is stable. Blood BLOOD SPECIMEN / Unknown Venipuncture / Unknown 10/04/2024 7:36 AM CDT 10/04/2024 7:42 AM CDT us Fadi Carson MD CHEMISTRY Final Resul t Performing Organization Address City/[facility]/ZIP Co de Phone Number [facility] SENDOUT INTERNAL ZIP [phone] [place] [phone] * SCAN-CARDIAC STRIP (10/03/2024 8:20 AM CDT) us Scanner OTHER Final Result * EXTRA TUBE LAVENDER (10/03/2024 7:28 AM CDT) Blood BLOOD SPECIMEN / Unknown Non-Lab Venipuncture / Unknown 10/03/2024 7:28 AM CDT 10/03/2024 7:45 AM CDT us Doctor Unknown LABORATORY Final Result [facility] SENDOUT INTERNAL ZIP [phone] [place] [phone] * US ARTERIAL LOWER EXTREMITY RIGHT (10/02/2024 4:44 PM CDT) Anatomical Region Laterality Modality Ultrasound 10/02/2024 4:44 PM CDT Impressions 10/02/2024 11:48 PM CDT 1. No sonographic evidence of high-grade stenosis. 2. Collateral vessel noted at the ankle. Narrative 10/02/2024 11:48 PM CDT For Patients: As a result of the Cures Act, medical imaging exams and procedure reports are released immediately into your electronic medical record. You may view this report before your referring provider. If you have questions, please contact your health care provider. EXAM: US ARTERIAL LOWER EXTREMITY RIGHT LOCATION: [facility] MEDICAL IMAGING DATE: 10/02/2024 INDICATION: Nonhealing wounds. COMPARISON: None. TECHNIQUE: Duplex utilizing 2D grayscale imaging, Doppler interrogation with color flow and spectral waveform analysis. FINDINGS: RIGHT LOWER EXTREMITY ARTERIAL ASSESSMENT: Common femoral artery: 140 cm/s Profunda femoris artery: 71 cm/s SFA (proximal): 111 cm/s SFA (mid): 116 cm/s SFA (distal): 159 cm/s Popliteal artery (proximal): 120 cm/s Popliteal artery (distal): 94 cm/s Anterior tibial artery: 135 cm/s Posterior tibial artery: 110 cm/s Dorsalis pedis artery: 145 cm/s Predominantly triphasic waveforms. Collateral vessel noted right ankle feeding into the right posterior tibial artery. Right groin lymph nodes measuring up to 2.6 x 1 cm. Procedure Note Ayesha Lopez MD - 10/03/2024 For Patients: As a result of the s Act, medical imagingexams and procedure reports are released immediately into your electronicmedical record. You may view this report before your referring provider.If you have questions, please contact your health care provider. EXAM: US ARTERIAL LOWER EXTREMITY RIGHT LOCATION: [facility] MEDICAL IMAGING DATE: 10/02/2024 INDICATION: Nonhealing wounds. COMPARISON: None. TECHNIQUE: Duplex utilizing 2D grayscale imaging, Doppler interrogationwith color flow and spectral waveform analysis. FINDINGS: RIGHT LOWER EXTREMITY ARTERIAL ASSESSMENT: Common femoral artery: 140 cm/s Profunda femoris artery: 71 cm/s SFA (proximal): 111 cm/s SFA (mid): 116 cm/s SFA (distal): 159 cm/s Popliteal artery (proximal): 120 cm/s Popliteal artery (distal): 94 cm/s Anterior tibial artery: 135 cm/s Posterior tibial artery: 110 cm/s Dorsalis pedis artery: 145 cm/s Predominantly triphasic waveforms. Collateral vessel noted right anklefeeding into the right posterior tibial artery. Right groin lymph nodesmeasuring up to 2.6 x 1 cm. IMPRESSION: 1. No sonographic evidence of high-grade stenosis. 2. Collateral vessel noted at the ankle. us Kyle Juan NP US Final Result * MR FOOT LEFT WO (10/02/2024 4:19 PM CDT) Anatomical Region Laterality Modality FOOT L Magnetic Resonan ce 10/02/2024 4:19 PM CDT Impressions 10/02/2024 4:47 PM CDT 1. Postop changes of amputation at the level of the distal metatarsals. There is some marrow replacement and sclerosis along the 2nd metatarsal distally, which is nonspecific given there is a lack of substantial bone marrow edema. This can be seen in the setting of prior remodeling from surgery and/or chronic/treated osteomyelitis. Correlation with ulcer depth is recommended to exclude subacute to chronic osteomyelitis. 2. Small amount of tubular fluid along the plantar aspect of the foot near the 2nd/3rd metatarsal region measuring up to 1.6 x 0.7 x 1.1 cm in length. This is nonspecific and can be seen with a small seroma, hematoma, or abscess. 3. Diffuse soft tissue swelling, most pronounced dorsally, which can be seen with infectious as well as noninfectious causes of edema. Narrative 10/02/2024 4:47 PM CDT For Patients: As a result of the 21st Century Cures Act, medical imaging exams and procedure reports are released immediately into your electronic medical record. You may view this report before your referring provider. If you have questions, please contact your health care provider. EXAM: MR FOOT LEFT WO LOCATION: [facility] MEDICAL IMAGING DATE: 10/02/2024 INDICATION: Rule-out OM. COMPARISON: 10/01/2024. TECHNIQUE: Unenhanced. FINDINGS: Postop changes of amputation at the level of the distal metatarsals. There is soft tissue swelling along the stump, most pronounced near the 2nd and 3rd metatarsals where there is wound breakdown/dehiscence vs ulceration. Small amount of soft tissue gas is better seen radiographically. There is some marrow replacement and sclerosis of the distal 2nd metatarsal without significant marrow edema. No cortical destructive changes across the resection margin. There is a small amount of tubular fluid along the plantar aspect of the foot near the 2nd/3rd metatarsal region measuring up to 1.6 x 0.7 x 1.1 cm in length. There is diffuse soft tissue swelling, most pronounced dorsally. No evidence for an acute fracture. No acute tendon abnormality. Fatty atrophy of intrinsic muscles of the foot. Procedure Note Mahendra Clark MD - 10/02/2024 For Patients: As a result of the Cures Act, medical imagingexams and procedure reports are released immediately into your electronicmedical record. You may view this report before your referring provider.If you have questions, please contact your health care provider. EXAM: MR FOOT LEFT WO LOCATION: [facility] MEDICAL IMAGING DATE: 10/02/2024 INDICATION: Rule-out OM. COMPARISON: 10/01/2024. TECHNIQUE: Unenhanced. FINDINGS: Postop changes of amputation at the level of the distalmetatarsals. There is soft tissue swelling along the stump, mostpronounced near the 2nd and 3rd metatarsals where there is woundbreakdown/dehiscence vs ulceration. Small amount of soft tissue gas isbetter seen radiographically. There is some marrow replacement andsclerosis of the distal 2nd metatarsal without significant marrow edema.No cortical destructive changes across the resection margin. There is asmall amount of tubular fluid along the plantar aspect of the foot nearthe 2nd/3rd metatarsal region measuring up to 1.6 x 0.7 x 1.1 cm inlength. There is diffuse soft tissue swelling, most pronounced dorsally.No evidence for an acute fracture. No acute tendon abnormality. Fatty atrophy of intrinsic muscles of the foot. IMPRESSION: 1. Postop changes of amputation at the level of the distal metatarsals.There is some marrow replacement and sclerosis along the 2nd metatarsaldistally, which is nonspecific given there is a lack of substantial bonemarrow edema. This can be seen in the setting of prior remodeling fromsurgery and/or chronic/treated osteomyelitis. Correlation with ulcer depthis recommended to exclude subacute to chronic osteomyelitis. 2. Small amount of tubular fluid along the plantar aspect of the footnear the 2nd/3rd metatarsal region measuring up to 1.6 x 0.7 x 1.1 cm inlength. This is nonspecific and can be seen with a small seroma, hematoma,or abscess. 3. Diffuse soft tissue swelling, most pronounced dorsally, which can beseen with infectious as well as noninfectious causes of edema. Eda Odell NP MR Final Result * MR FOOT RIGHT WO (10/02/2024 4:19 PM CDT) Anatomical Region Laterality Modality FOOT R Magnetic Resonan ce 10/02/2024 4:19 PM CDT Impressions 10/02/2024 5:20 PM CDT 1. Plantar soft tissue ulceration adjacent to the fourth metatarsal head where there is some patchy bone marrow edema and marrow replacement. These findings are concerning for osteomyelitis. 2. Soft tissue swelling without a discrete abscess. 3. Prior amputation of the second and fourth toes as well as partial amputation of the fifth toe. Chronic appearing subluxation at the third toe with partial amputation versus chronic fracture deformity at the third MTP joint. NOTE: ABNORMAL REPORT THE DICTATION ABOVE DESCRIBES AN ABNORMALITY FOR WHICH FOLLOW-UP IS NEEDED. Narrative 10/02/2024 5:20 PM CDT For Patients: As a result of the Cures Act, medical imaging exams and procedure reports are released immediately into your electronic medical record. You may view this report before your referring provider. If you have questions, please contact your health care provider. EXAM: MR FOOT RIGHT WO LOCATION: [facility] MEDICAL IMAGING DATE: 10/02/2024 INDICATION: Rule out OM COMPARISON: 10/01/2024 radiograph. TECHNIQUE: Unenhanced. FINDINGS: Marked hallux valgus and prior amputation of the second and fourth toes as well as partial amputation of the fifth toe again seen. There is chronic appearing subluxation at the third toe with partial amputation at the MTP joint. There is plantar soft tissue ulceration adjacent to the fourth metatarsal head where there is some patchy bone marrow edema and marrow replacement. An additional there is somewhat more sensitive sclerosis of the fourth metatarsal shaft. Nothing to suggest abscess on this noncontrast exam. Partial fatty atrophy intrinsic muscles of the foot. Diffuse soft tissue swelling most pronounced dorsally. Procedure Note Mahendra Clark MD - 10/02/2024 For Patients: As a result of the Cures Act, medical imagingexams and procedure reports are released immediately into your electronicmedical record. You may view this report before your referring provider.If you have questions, please contact your health care provider. EXAM: FOOT RIGHT WO LOCATION: [facility] MEDICAL IMAGING DATE: 10/02/2024 INDICATION: Rule out OM COMPARISON: 10/01/2024 radiograph. TECHNIQUE: Unenhanced. FINDINGS: Marked hallux valgus and prior amputation of the second and fourth toes aswell as partial amputation of the fifth toe again seen. There is chronicappearing subluxation at the third toe with partial amputation at the MTPjoint. There is plantar soft tissue ulceration adjacent to the fourth metatarsalhead where there is some patchy bone marrow edema and marrow replacement.An additional there is somewhat more sensitive sclerosis of the fourthmetatarsal shaft. Nothing to suggest abscess on this noncontrast exam. Partial fatty atrophyintrinsic muscles of the foot. Diffuse soft tissue swelling mostpronounced dorsally. IMPRESSION: 1. Plantar soft tissue ulceration adjacent to the fourth metatarsal headwhere there is some patchy bone marrow edema and marrow replacement. Thesefindings are concerning for osteomyelitis. 2. Soft tissue swelling without a discrete abscess. 3. Prior amputation of the second and fourth toes as well as partialamputation of the fifth toe. Chronic appearing subluxation at the thirdtoe with partial amputation versus chronic fracture deformity at the thirdMTP joint. NOTE: ABNORMAL REPORT THE DICTATION ABOVE DESCRIBES AN ABNORMALITY FOR WHICH FOLLOW-UP ISNEEDED. Eda Odell NP MR Final Result * SCAN-CARDIAC STRIP (10/02/2024 10:51 AM CDT) us Scanner OTHER Final Result * XR FOOT 3 VIEWS LEFT (10/01/2024 8:54 PM CDT) Anatomical Region Laterality Modality FEET, FOOT L Computed Radiogr aphy 10/01/2024 8:54 PM CDT Impressions 10/01/2024 9:02 PM CDT Left: Transmetatarsal amputation. Ulceration over the distal forefoot. Soft tissue edema about the foot. No acute fracture or evidence of osteomyelitis. Right: Partial second ray indication . Partial amputation of the third metatarsal and base of the third proximal phalanx with dorsal dislocation of the third toe in relation to the metatarsal. Progressive sclerosis and cortical irregularity of the fourth metatarsal since the comparison exam concerning for underlying osteomyelitis. MRI would be more sensitive for evaluation. Chronic deformity of the fifth toe which may be postoperative, posttraumatic, or developmental. No acute fracture. Narrative 10/01/2024 9:02 PM CDT For Patients: As a result of the Cures Act, medical imaging exams and procedure reports are released immediately into your electronic medical record. You may view this report before your referring provider. If you have questions, please contact your health care provider. EXAM: XR FOOT 3 VIEWS LEFT, XR FOOT 3 VIEWS RIGHT LOCATION: [facility] MEDICAL IMAGING DATE: 10/01/2024 INDICATION: Diabetic foot wound. COMPARISON: 04/14/2024 Procedure Note Jordy Conde, - 10/01/2024 For Patients: As a result of the Cures Act, medical imagingexams and procedure reports are released immediately into your electronicmedical record. You may view this report before your referring provider.If you have questions, please contact your health care provider. EXAM: XR FOOT 3 VIEWS LEFT, XR FOOT 3 VIEWS RIGHT LOCATION: [facility] MEDICAL IMAGING DATE: 10/01/2024 INDICATION: Diabetic foot wound. COMPARISON: 04/14/2024 IMPRESSION: Left: Transmetatarsal amputation. Ulceration over the distal forefoot.Soft tissue edema about the foot. No acute fracture or evidence ofosteomyelitis. Right: Partial second ray indication . Partial amputation of the thirdmetatarsal and base of the third proximal phalanx with dorsal dislocationof the third toe in relation to the metatarsal. Progressive sclerosis andcortical irregularity of the fourth metatarsal since the comparison examconcerning for underlying osteomyelitis. MRI would be more sensitive forevaluation. Chronic deformity of the fifth toe which may be postoperative,posttraumatic, or developmental. No acute fracture. us Robbin Chong NP GENERAL IMAGING Final Result * US ARTERIAL LOWER EXTREMITY W MALKA BILATERAL (10/01/2024 7:28 PM CDT) Anatomical Region Laterality Modality LEGS Ultrasound 10/01/2024 7:28 PM CDT Impressions 10/01/2024 7:37 PM CDT 1. RIGHT LOWER EXTREMITY: Noncompressible vessels. 2. LEFT LOWER EXTREMITY: Normal MALKA of 1.14. Narrative 10/01/2024 7:37 PM CDT For Patients: As a result of the Cures Act, medical imaging exams and procedure reports are released immediately into your electronic medical record. You may view this report before your referring provider. If you have questions, please contact your health care provider. EXAM: 1. RESTING ANKLE-BRACHIAL INDICES (ABIs) LOCATION: [facility] MEDICAL IMAGING DATE: 10/01/2024 INDICATION: Decreased extremity pulses COMPARISON: None. TECHNIQUE: MALKA and waveforms of the bilateral lower extremities were performed. FINDINGS: MALKA: RIGHT Ankle (PT): Noncompressible Ankle (DP): Noncompressible LEFT Ankle (PT): 217 Index: 1.14 Ankle (DP): 191 Index: 1.01 Resting ABIs are noncompressible on the right. Resting ABIs are 1.14 on the left. WAVEFORMS and VELOCITIES: Multiphasic Procedure Note Feng Bates MD - 10/01/2024 For Patients: As a result of the Cures Act, medical imagingexams and procedure reports are released immediately into your electronicmedical record. You may view this report before your referring provider.If you have questions, please contact your health care provider. EXAM: 1. RESTING ANKLE-BRACHIAL INDICES (ABIs) LOCATION: [facility] MEDICAL IMAGING DATE: 10/01/2024 INDICATION: Decreased extremity pulses COMPARISON: None. TECHNIQUE: MALKA and waveforms of the bilateral lower extremities wereperformed. FINDINGS: MALKA: RIGHT Ankle (PT): Noncompressible Ankle (DP): Noncompressible LEFT Ankle (PT): 217 Index: 1.14 Ankle (DP): 191 Index: 1.01 Resting ABIs are noncompressible on the right. Resting ABIs are 1.14 on the left. WAVEFORMS and VELOCITIES: Multiphasic IMPRESSION: 1. RIGHT LOWER EXTREMITY: Noncompressible vessels. 2. LEFT LOWER EXTREMITY: Normal MALKA of 1.14. Jordy Casey DPM US Alie l Result * (ABNORMAL) PTH,INTACT (10/01/2024 12:57 PM CDT) [facility] CALCIUM 7.3(L) 8.8 - 10.4 mg/dL 10/01/2024 4:06 PM CDT [facility] Comment: Reference ranges for this test were updated on 01/06/2024 to reflect our healthy population more accurately. Reference range changes are not retroactively applied to results, but previous results using the same methodology can be interpreted in the context of the new reference range. PTH,INTACT 388.0(H) 15.0 - 69.0 pg/mL 10/01/2024 4:06 PM CDT [facility] Blood BLOOD SPECIMEN / Unknown Venipuncture / Unknown 10/01/2024 12:57 PM CDT 10/01/2024 1:29 PM CDT Jovanni Johnson MD SEND OUTS Final Resul t [facility] [address] [place] [address], * SCAN-CARDIAC STRIP (10/01/2024 8:20 AM CDT) us Scanner OTHER Final Result * IR CENTRAL VENOUS CATHETER TUNNEL => 5Y INSERTION (09/30/2024 2:40 PM CDT) Anatomical Region Laterality Modality X-Ray Angiograph y, Other, Other 09/30/2024 2:40 PM CDT Impressions 09/30/2024 2:55 PM CDT 1. Tunneled dialysis catheter placement, as discussed above. 2. The catheter position was verified fluoroscopically and this is ready for use. Narrative 09/30/2024 2:55 PM CDT For Patients: As a result of the Century Cures Act, medical imaging exams and procedure reports are released immediately into your electronic medical record. You may view this report before your referring provider. If you have questions, please contact your health care provider. [facility] LOCATION: [facility] MEDICAL IMAGING DATE: 09/30/2024 PROCEDURE:TUNNELED DIALYSIS CATHETER PLACEMENT INTERVENTIONAL RADIOLOGIST: Sushil Stanley MD. INDICATION: Chronic kidney disease. Need for dialysis. CONSENT: The risks, benefits and alternatives of tunneled dialysis catheter placement were discussed with the patient in detail. All questions were answered. Informed consent was given to proceed with the procedure. MODERATE SEDATION: Versed 0.5 mg IV; Fentanyl 25 mcg IV. During the timeout, immediately prior to the administration of medications, the patient was reassessed for adequacy to receive conscious sedation. Under physician supervision, Versed and fentanyl were administered for moderate sedation. Pulse oximetry, heart rate and blood pressure were continuously monitored by an independent trained observer. The physician spent 15 minutes of [id number]-[id number] sedation time with the patient. CONTRAST: None. ANTIBIOTICS: Ancef 2 grams IV. ADDITIONAL MEDICATIONS: None. FLUOROSCOPIC TIME: 0.1 minutes. RADIATION DOSE: Air Kerma: 2 mGy. COMPLICATIONS: No immediate complications. STERILE BARRIER TECHNIQUE: Maximum sterile barrier technique was used. Cutaneous antisepsis was performed at the operative site with application of 2% chlorhexidine and large sterile drape. Prior to the procedure, the coloring machine operator and human services assistant performed hand hygiene and wore hat, mask, sterile gown, and sterile gloves during the entire procedure. PROCEDURE: Using real-time ultrasound guidance, the right internal jugular vein was punctured. A subcutaneous tunnel was created requiring a second incision. Using this access, a 19 cm tip to cuff Glidepath dialysis catheter was advanced until the tip was in the proximal right atrium. The catheter was tested and found to flush and aspirate appropriately. The catheter was heparinized and secured to the skin. FINDINGS: Ultrasound shows an anechoic and compressible jugular vein. A permanent image was stored. At the completion of the study, the new catheter tip lies in the proximal right atrium. Procedure Note Sushil Stanley MD - 07/31/2025 For Patients: As a result of the Cures Act, medical imagingexams and procedure reports are released immediately into your electronicmedical record. You may view this report before your referring provider.If you have questions, please contact your health care provider. [facility] LOCATION: [facility] MEDICAL IMAGING DATE: 09/30/2024 PROCEDURE:TUNNELED DIALYSIS CATHETER PLACEMENT INTERVENTIONAL RADIOLOGIST: Sushil Stanley MD. INDICATION: Chronic kidney disease. Need for dialysis. CONSENT: The risks, benefits and alternatives of tunneled dialysiscatheter placement were discussed with the patient in detail. Allquestions were answered. Informed consent was given to proceed with theprocedure. MODERATE SEDATION: Versed 0.5 mg IV; Fentanyl 25 mcg IV. During thetimeout, immediately prior to the administration of medications, thepatient was reassessed for adequacy to receive conscious sedation. Underphysician supervision, Versed and fentanyl were administered for moderatesedation. Pulse oximetry, heart rate and blood pressure were continuouslymonitored by an independent trained observer. The physician spent 15minutes of vaen-xi-wkem sedation time with the patient. CONTRAST: None. ANTIBIOTICS: Ancef 2 grams IV. ADDITIONAL MEDICATIONS: None. FLUOROSCOPIC TIME: 0.1 minutes. RADIATION DOSE: Air Kerma: 2 mGy. COMPLICATIONS: No immediate complications. STERILE BARRIER TECHNIQUE: Maximum sterile barrier technique was used.Cutaneous antisepsis was performed at the operative site with applicationof 2% chlorhexidine and large sterile drape. Prior to the procedure, theoperator and human services assistant performed hand hygiene and wore hat, mask, sterilegown, and sterile gloves during the entire procedure. PROCEDURE: Using real-time ultrasound guidance, the right internal jugular vein waspunctured. A subcutaneous tunnel was created requiring a second incision.Using this access, a 19 cm tip to cuff Glidepath dialysis catheter wasadvanced until the tip was in the proximal right atrium. The catheter wastested and found to flush and aspirate appropriately. The catheter washeparinized and secured to the skin. FINDINGS: Ultrasound shows an anechoic and compressible jugular vein. A permanentimage was stored. At the completion of the study, the new catheter tip lies in the proximalright atrium. IMPRESSION: 1. Tunneled dialysis catheter placement, as discussed above. 2. The catheter position was verified fluoroscopically and this is readyfor use. Effie Jose RAILCAR SWITCHMAN IR Final Res ult * (ABNORMAL) IRON PLUS IRON BINDING CAP (09/30/2024 12:03 PM CDT) [facility] IRON 41(L) 61 - 157 ug/dL 09/30/2024 12:46 PM CDT [facility] UIBC (UNSATURATED) 190 112 - 347 ug/dL 09/30/2024 12:46 PM CDT [facility] IRON BINDING CAPACITY 231(L) 250 - 400 ug/dL 09/30/2024 12:46 PM CDT [facility] IRON,% SATURATION 18 14 - 50 % 09/30/2024 12:46 PM CDT [facility] Blood BLOOD SPECIMEN / Unknown Venipuncture / Unknown 09/30/2024 12:03 PM CDT 09/30/2024 12:17 PM CDT Jovanni Johnson MD CHEMISTRY Final Resul t [facility] SENDOUT INTERNAL ZIP [id number] [place] [id number] * ANTI HCV (09/30/2024 12:03 PM CDT) [facility] HEPATITIS C ANTIBODY Non-Reacti ve Non-React jeannie 09/30/2024 4:04 PM CDT [facility] Comment:Please note, per www .CDC.gov: If a patient is known to be at high risk of HCV infection, or is symptomatic, and the physician's suspicion of HCV infection is high, HCV RNA testing is often employed and is of diagnostic value, even after an initial negative anti-HCV test result. Blood BLOOD SPECIMEN / Unknown Venipuncture / Unknown 09/30/2024 12:03 PM CDT 09/30/2024 12:15 PM CDT Jovanni Johnson MD SEND OUTS Final Resul t [facility] [address] [place] [address], [place] * EMPLOYEE ANTI HBS (09/30/2024 12:03 PM CDT) ANTI HBS QUANT <3.50 mIU/mL 09/30/2024 4:19 PM CDT [facility] Blood BLOOD SPECIMEN / Unknown Venipuncture / Unknown 09/30/2024 12:03 PM CDT 09/30/2024 12:16 PM CDT Narrative [facility] - 09/30/2024 4:19 PM CDT < 10 mIU/mL Individual is considered not immune to HBV infection. >= 10 mIU/mL Individual is considered immune to HBV infection. Biotin supplements may cause clinically significant interference for this test assay. If interference is suspected, it is strongly recommended that biotin is discontinued for at least one week prior to retesting. Jovanni Johnson MD SEND OUTS Final Resul t Performing Organization Address [facility]/[place] Co de Phone Number [facility] [address] [place] [address], * ANTI HBC (09/30/2024 12:03 PM CDT) ANTI HBC Non-React jeannie Non-React jeannie 09/30/2024 4:19 PM CDT [facility] Comment:Anti-HBc Antibodies not detected. Does not exclude the possibility of exposure to or infection with HBV. Levels of Anti-HBc may be below the cut-off in early infection. Blood BLOOD SPECIMEN / Unknown Venipuncture / Unknown 09/30/2024 12:03 PM CDT 09/30/2024 12:16 PM CDT Jovanni Johnson MD SEND OUTS Final Resul t Performing Organization Address City/[facility]/ZIP Co de Phone Number [facility] [address] [place] [address], [place] * (ABNORMAL) PROTIME-INR (09/30/2024 12:03 PM CDT) Pathologist [facility] INR 1.1 <1.3 09/30/2024 12:28 PM CDT [facility] PROTIME 12.7(H) 10.6 - 12.4 sec 09/30/2024 12:28 PM CDT [facility] Blood BLOOD SPECIMEN / Unknown Venipuncture / Unknown 09/30/2024 12:03 PM CDT 09/30/2024 12:16 PM CDT Narrative [facility] - 09/30/2024 12:28 PM CDT Therapeutic Range 2.0-3.0 for most anticoagulated patients 2.5-3.5 or 4.0 for high risk patients The INR is only used for patients on stable oral anticoagulant therapy. It makes no significant contribution to the diagnosis or treatment of patients whose Protime is prolonged for other reasons. INR results are increased when heparin levels exceed 1.0 U/mL, which corresponds to an aPTT >125 seconds if the patient is on UFH. 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 Normal left ventricular size, mildly increased wall thickness, and normal left ventricular systolic function. Estimated left ventricular ejection fraction is 55-60%. No regional wall motion abnormalities. 2. Normal right ventricular size and right ventricular systolic function. 3. Severe left atrial enlargement and mild right atrial enlargement. 4. No hemodynamically significant valve disease. Estimated EF: 55-60% FINDINGS Left Ventricle Normal left ventricular chamber size. Mild concentrically increased left ventricular wall thickness. Normal left ventricular systolic function. Calculated left ventricular ejection fraction (modified Fields technique) is 55 %. No regional wall motion abnormalities. Diastolic Function Grade 1 left ventricular diastolic dysfunction consistent with abnormal myocardial relaxation and normal left ventricular filling pressure. Right Ventricle Normal right ventricular chamber size. Normal right ventricular systolic function. Right ventricular systolic pressure cannot be estimated due to inability to detect peak tricuspid regurgitation Doppler velocity. Left Atrium Severe left atrial enlargement. Left atrial volume index is 56 ml/m . Right Atrium Mild right atrial enlargement. Atrial Septum Atrial septum was not well visualized. No evidence of inter-atrial shunt by color flow Doppler. Aortic Valve Normal trileaflet aortic valve. No aortic valve stenosis. No aortic valve regurgitation. Mitral Valve Normal mitral valve. No mitral valve stenosis. Trivial mitral valve regurgitation. Tricuspid Valve Normal tricuspid valve. Trivial tricuspid valve regurgitation. Pulmonic Valve Normal pulmonary valve. No pulmonary valve stenosis. Trivial pulmonary valve regurgitation. Pericardium Tiny pericardial effusion. Aorta Normal aortic sinus of Valsalva dimension (3.7 cm). Normal ascending aorta dimension (3.1 cm). Inferior Vena Cava Normal inferior vena cava with normal inspiratory collapse. MEASUREMENTS (Male / Female) Normal Values 2D MEASUREMENTS AND LV FUNCTION IVS Diastolic Thickness 1.15 cm < 1.1 cm / < 1.0 cm LV Diastolic Diameter PLAX 4.94 cm 4.2 - 5.9 / 3.9 - 5.3 cm LV Diastolic Diameter Index 2.44 cm/m LVPW Diastolic Thickness 0.791 cm < 1.1 cm / < 1.0 cm LV Systolic Diameter PLAX 3.65 cm LV Systolic Diameter Index 1.8 cm/m LVOT Diameter 2.5 cm LVOT Cardiac Output 8.19 l/min LVOT Cardiac Index 3.77 l/min m LVOT Stroke Volume 122 ml Stroke Volume Index 56.3 ml/m LV Ejection Fraction MOD BP 55.1 % >= 55 % LA Volume MOD BP 114 ml LA Volume Index MOD BP 56.3 ml/m 16 - 34 ml/m RV Diastolic Basal Diameter 3.72 cm RV Diastolic Mid Diameter 3.08 cm LV Mass 171 g LV Mass Index 80.8 g/m Sinuses of Valsalva Diameter(d) 3.7 cm Ascending Aorta Diameter(s) 3.1 cm IVC Diameter Expiration 1.44 cm Ascending Aorta Index 1.53 cm/m M MODE TAPSE MM 2.27 cm DIASTOLOGY Mitral E Point Velocity 0.643 m/sec 0.70 - 1.02 m/sec Mitral A Point Velocity 1.16 m/sec 0.06 - 1.06 m/sec Mitral E to A Ratio 0.554 1.1 - 2.1 MV Deceleration Time 249 msec 167 - 231 msec LV E' Lateral Velocity 0.0793 m/sec Mitral E to LV E' Lateral Ratio 8.11 LV E' Septal Velocity 0.0532 m/sec Mitral E to LV E' Septal Ratio 12.1 AORTIC VALVE AV Peak Velocity 1.43 m/sec < 2.0 m/sec AV Peak Gradient 8.18 mmHg AV Mean Gradient 5 mmHg AV Velocity Time Integral 35.3 cm LVOT Peak Velocity 1.08 m/sec LVOT Velocity Time Integral 24.9 cm AV Area Cont Eq vti 3.46 cm AV Area Cont Eq pk 3.71 cm AV Dimensionless Index 0.705 MITRAL VALVE MV Pressure Half Time 73 msec MV Area PHT 3.01 cm TRICUSPID VALVE AND ESTIMATED PRESSURES Right Atrial Pressure 3 mmHg HCM DATA LVOT ANABEL (r) 4.67 mmHg Aortic Root ZScore: 0.64 Ritesh Shelton MD (Electronically Signed) [facility] Accredited Site Final Date: 30 September 2024 11:03 ICD-10 Codes: 428.9 Procedure Note Ritesh Shelton MD - 09/30/[address] [address] Main: [email or web address] Transthoracic Echo Report FADI RAZA Excellian ID: [id number] Age: 49 : 1975 Ordering Provider:ANGELO PAL Exam Date: 09/30/2024 12:27 Gender: M 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 Normal left ventricular size, mildly increased wall thickness, andnormal left ventricular systolic function. Estimated left ventricular ejection fraction is 55-60%. No regional wall motion abnormalities. 2. Normal right ventricular size and right ventricular systolicfunction. 3. Severe left atrial enlargement and mild right atrial enlargement. 4. No hemodynamically significant valve disease. Estimated EF: 55-60% FINDINGS Left Ventricle Normal left ventricular chamber size. Mild concentricallyincreased left ventricular wall thickness. Normal left ventricular systolic function. Calculated left ventricular ejectionfraction (modified Fields technique) is 55 %. No regional wall motion abnormalities. Diastolic Function Grade 1 left ventricular diastolic dysfunctionconsistent with abnormal myocardial relaxation and normal left ventricular filling pressure. Right Ventricle Normal right ventricular chamber size. Normal rightventricular systolic function. Right ventricular systolic pressure cannot be estimated due to inability to detect peak tricuspidregurgitation Doppler velocity. Left Atrium Severe left atrial enlargement. Left atrial volume index is56 ml/m . Right Atrium Mild right atrial enlargement. Atrial Septum Atrial septum was not well visualized. No evidence ofinter-atrial shunt by color flow Doppler. Aortic Valve Normal trileaflet aortic valve. No aortic valve stenosis. Noaortic valve regurgitation. Mitral Valve Normal mitral valve. No mitral valve stenosis. Trivialmitral valve regurgitation. Tricuspid Valve Normal tricuspid valve. Trivial tricuspid valveregurgitation. Pulmonic Valve Normal pulmonary valve. No pulmonary valve stenosis.Trivial pulmonary valve regurgitation. Pericardium Tiny pericardial effusion. Aorta Normal aortic sinus of Valsalva dimension (3.7 cm). Normalascending aorta dimension (3.1 cm). Inferior Vena Cava Normal inferior vena cava with normal inspiratorycollapse. MEASUREMENTS (Male / Female) Normal Values 2D MEASUREMENTS AND LV FUNCTION IVS Diastolic Thickness 1.15 cm < 1.1 cm / < 1.0cm LV Diastolic Diameter PLAX 4.94 cm 4.2 - 5.9 / 3.9 -5.3 cm LV Diastolic Diameter Index 2.44 cm/m LVPW Diastolic Thickness 0.791 cm < 1.1 cm / < 1.0cm LV Systolic Diameter PLAX 3.65 cm LV Systolic Diameter Index 1.8 cm/m LVOT Diameter 2.5 cm LVOT Cardiac Output 8.19 l/min LVOT Cardiac Index 3.77 l/min m LVOT Stroke Volume 122 ml Stroke Volume Index 56.3 ml/m LV Ejection Fraction MOD BP 55.1 % >= 55 % LA Volume MOD BP 114 ml LA Volume Index MOD BP 56.3 ml/m 16 - 34 ml/m RV Diastolic Basal Diameter 3.72 cm RV Diastolic Mid Diameter 3.08 cm LV Mass 171 g LV Mass Index 80.8 g/m Sinuses of Valsalva Diameter(d) 3.7 cm Ascending Aorta Diameter(s) 3.1 cm IVC Diameter Expiration 1.44 cm Ascending Aorta Index 1.53 cm/m M MODE TAPSE MM 2.27 cm DIASTOLOGY Mitral E Point Velocity 0.643 m/sec 0.70 - 1.02m/sec Mitral A Point Velocity 1.16 m/sec 0.06 - 1.06m/sec Mitral E to A Ratio 0.554 1.1 - 2.1 MV Deceleration Time 249 msec 167 - 231 msec LV E' Lateral Velocity 0.0793 m/sec Mitral E to LV E' Lateral Ratio 8.11 LV E' Septal Velocity 0.0532 m/sec Mitral E to LV E' Septal Ratio 12.1 AORTIC VALVE AV Peak Velocity 1.43 m/sec < 2.0 m/sec AV Peak Gradient 8.18 mmHg AV Mean Gradient 5 mmHg AV Velocity Time Integral 35.3 cm LVOT Peak Velocity 1.08 m/sec LVOT Velocity Time Integral 24.9 cm AV Area Cont Eq vti 3.46 cm AV Area Cont Eq pk 3.71 cm AV Dimensionless Index 0.705 MITRAL VALVE MV Pressure Half Time 73 msec MV Area PHT 3.01 cm TRICUSPID VALVE AND ESTIMATED PRESSURES Right Atrial Pressure 3 mmHg HCM DATA LVOT ANABEL (r) 4.67 mmHg Aortic Root ZScore: 0.64 Ritesh Shelton MD (Electronically Signed) [facility] Accredited Site Final Date: 30 September 2024 11:03 ICD-10 Codes: 428.9 us Angelo Pal MD ECHO ORD Final Resu lt * SCAN-CARDIAC STRIP (09/30/2024 9:07 AM CDT) us Scanner OTHER Final Result * SCAN-CARDIAC STRIP (09/29/2024 8:24 PM CDT) us Scanner OTHER Final Result * (ABNORMAL) URINALYSIS MICROSCOPIC (09/29/2024 11:08 AM CDT) RBC 3-5(A) 0-2, None Seen /HPF 09/29/2024 11:30 AM CDT [facility] WBC 0-2 0-2, 3-5, None Seen /HPF 09/29/2024 11:30 AM CDT [facility] BACTERIA Few None Seen, Rare, Few Bacteria/H PF 09/29/2024 11:30 AM CDT [facility] EPITHELIAL CELLS Few None Seen, Few Epi/HPF 09/29/2024 11:30 AM CDT [facility] Urine URINE SPECIMEN / Unknown Non-Blood / Unknown 09/29/2024 11:08 AM CDT 09/29/2024 11:14 AM CDT us Sushil Cramer MD URINE Alie l Result Performing Organization Address [facility]/State/ZIP Co de Phone Number [facility] [address] [place] [id number] * (ABNORMAL) UA W/ SEDIMENT EXAM REFLEXED PER CRITERIA (09/29/2024 11:08 AM CDT) COLOR Yellow Yellow Color 09/29/2024 11:24 AM CDT [facility] CLARITY Clear Clear Clarity 09/29/2024 11:24 AM CDT [facility] SPECIFIC GRAVITY,URINE 1.020 1.010, 1.015, 1.020, 1.025 09/29/2024 11:24 AM T [facility] PH,URINE 7.5 6.0, 7.0, 8.0, 5.5, 6.5, 7.5, 8.5 09/29/2024 11:24 AM CDT [facility] UROBILINOGEN, QUALITATIVE Normal Normal EU/dl 09/29/2024 11:24 AM CDT [facility] PROTEIN, URINE >=300(A) Negative mg/dL 09/29/2024 11:24 AM CDT [facility] GLUCOSE, URINE 250(A) Negative mg/dL 09/29/2024 11:24 AM CDT [facility] KETONES,URINE Trace(A) Negative mg/dL 09/29/2024 11:24 AM CDT [facility] BILIRUBIN,URI NE Negative Negative 09/29/2024 11:24 AM CDT [facility] OCCULT BLOOD,URINE Moderate(A) Negative 09/29/2024 11:24 AM CDT [facility] NITRITE Negative Negative 09/29/2024 11:24 AM CDT [facility] LEUKOCYTE ESTERASE Negative Negative 09/29/2024 11:24 AM CDT [facility] Urine URINE SPECIMEN / Unknown Non-Blood / Unknown 09/29/2024 11:08 AM CDT 09/29/2024 11:14 AM CDT us Sushil Cramer MD URINE Alie l Result [facility] [address] [place], [place] [id number] * US RENAL AND BLADDER COMPLETE (09/29/2024 9:42 AM CDT) Anatomical Region Laterality Modality Abdomen, AORTA, KIDNEYS Ultrasou nd 09/29/2024 9:52 AM CDT Impressions 09/29/2024 9:52 AM CDT 1. Sonographically normal kidneys. 2. Small amount of incidental free fluid in the right paracolic gutter. Dictated by Lor Gutierrez MD @ 09/29/2024 9:52:22 AM (Electronically Signed) Narrative 09/29/2024 9:52 AM CDT For Patients: As a result of the Cures Act, medical imaging exams and procedure reports are released immediately into your electronic medical record. You may view this report before your referring provider. If you have questions, please contact your health care provider. INDICATION: Renal failure COMPARISON: None. TECHNIQUE: Awad-scale and color Doppler ultrasound of the kidneys and bladder. FINDINGS: RIGHT Kidney: Renal length: 10.3 cm Parenchyma: Normal thickness and normal echogenicity. Cyst: None Mass: None Calculi: None Urinary tract: Not dilated. LEFT Kidney: Renal length: 10.1 cm Parenchyma: Normal thickness and normal echogenicity. Cyst: None Mass: None Calculi: None Urinary tract: Not dilated. Urinary bladder: Normal. Bladder volume 170 mL. No postvoid residual. Trace fluid in the superior right pericolic gutter incidentally seen. Procedure Note Lor Gutierrez MD - 09/29/2024 For Patients: As a result of the Cures Act, medical imagingexams and procedure reports are released immediately into your electronicmedical record. You may view this report before your referring provider.If you have questions, please contact your health care provider. INDICATION: Renal failure COMPARISON: None. TECHNIQUE: Awad-scale and color Doppler ultrasound of the kidneys and bladder. FINDINGS: RIGHT Kidney: Renal length: 10.3 cm Parenchyma: Normal thickness and normal echogenicity. Cyst: None Mass: None Calculi: None Urinary tract: Not dilated. LEFT Kidney: Renal length: 10.1 cm Parenchyma: Normal thickness and normal echogenicity. Cyst: None Mass: None Calculi: None Urinary tract: Not dilated. Urinary bladder: Normal. Bladder volume 170 mL. No postvoid residual. Trace fluid in the superior right pericolic gutter incidentally seen. IMPRESSION: 1. Sonographically normal kidneys. 2. Small amount of incidental free fluid in the right paracolic gutter. Dictated by Lor Gutierrez MD @ 09/29/2024 9:52:22 AM (Electronically Signed) Sushil Cramer MD Alie espitia Result * (ABNORMAL) TROPONIN T (HS) ONE TIME (09/29/2024 8:53 AM CDT) TROPONIN T HS 174(H) 6-15 ng/L ng/L 09/29/2024 9:15 AM CDT [facility] Blood BLOOD SPECIMEN / Unknown Venipuncture / Unknown 09/29/2024 8:53 AM CDT 09/29/2024 8:55 AM CDT us Nils Franco MD CHEMISTRY Final Result Performing Organization Address City/[facility]/ZIP Co de Phone Number [facility] [address] [place] [address] * HBSAG (HBS) (09/29/2024 8:53 AM CDT) HBSAG Nonreactive Nonreactive 09/30/2024 11:20 PM CDT [facility] Blood BLOOD SPECIMEN / Unknown Venipuncture / Unknown 09/29/2024 8:53 AM CDT 09/29/2024 8:55 AM CDT us Jovanni Johnson MD SEND OUTS Final Resul t Performing Organization Address City/[facility]/ZIP Co de Phone Number [facility] [address] [place] [address], [place] * XR CHEST 2 VIEWS PA AND LATERAL (09/29/2024 7:45 AM CDT) Anatomical Region Laterality Modality CHEST, THORAX, Lung, HEART Digit al Radiography 09/29/2024 7:53 AM CDT Narrative 09/29/2024 7:53 AM CDT For Patients: As a result of the Century Cures Act, medical imaging exams and procedure reports are released immediately into your electronic medical record. You may view this report before your referring provider. If you have questions, please contact your health care provider. INDICATION: Shortness of breath TECHNIQUE: Chest 2 views. COMPARISON: X-ray chest September 20, 2018 FINDINGS/ IMPRESSION: Patchy airspace opacity at the right medial base is likely related to superimposed pulmonary vasculature, focal consolidation thought less likely. No effusion or pneumothorax. Cardiac size is within normal limit without pulmonary edema. Dictated by Jhony Menon MD @ 09/29/2024 7:53:17 AM (Electronically Signed) Procedure Note Jhony Menon MD - 09/29/2024 For Patients: As a result of the Cures Act, medical imagingexams and procedure reports are released immediately into your electronicmedical record. You may view this report before your referring provider.If you have questions, please contact your health care provider. INDICATION: Shortness of breath TECHNIQUE: Chest 2 views. COMPARISON: X-ray chest September 20, 2018 FINDINGS/ IMPRESSION: Patchy airspace opacity at the right medial base is likely related tosuperimposed pulmonary vasculature, focal consolidation thought lesslikely. No effusion or pneumothorax. Cardiac size is within normal limit without pulmonary edema. Dictated by Jhony Menon MD @ 09/29/2024 7:53:17 AM (Electronically Signed) Nils Franco MD GENERAL IMAGING Final Result * (ABNORMAL) TROPONIN T (HS) ACUTE W/2HR REFLEX (09/29/2024 7:05 AM CDT) TROPONIN T HS 200(H) 6-15 ng/L ng/L 09/29/2024 7:49 AM T [facility] Blood BLOOD SPECIMEN / Unknown IV Start / Unknown 09/29/2024 7:05 AM CDT 09/29/2024 7:26 AM CDT [facility] - 09/29/2024 7:49 AM CDT hs-cTnT (Elecsys Troponin T Gen 5) concentration (s) above the sex-specific 99th percentile (16 ng/L or greater for males or 11 ng/L or greater for females) are indicative of myocardial injury. If initial hs-cTnT <=100 ng/L at presentation, a 0h/2h ABSOLUTE (ng/L) delta change (rising or falling) of >=10 ng/L suggests a significant change, whereas a 0h/2h delta change <=3 ng/L suggests no significant change. If initial hs-cTnT >100 ng/L at presentation, a 0h/2h/ RELATIVE (percent, %) delta change of 20% is suggested to distinguish patients with acute vs. chronic myocardial injury. There are multiple etiologies that can cause hs-cTnT increases above the 99th percentile (myocardial injury) other than acute myocardial infarction. Clinical context and careful clinical evaluation are critical for diagnosis and risk-stratification. The diagnosis of acute myocardial infarction requires a rising and/or falling pattern in hs-cTnT concentrations with at least one value above the sex-specific 99th percentile PLUS at least one of the following clinical criteria: ischemic symptoms, new or presumed new significant ST-T wave changes or new LBBB, development of pathological Q waves, imaging evidence of new loss of viable myocardium or new regional wall motion abnormality, or identification of intracoronary atherothrombosis or an acute angiographic culprit on coronary angiography. In appropriate low-risk patients with a non-ischemic electrocardiogram without active chest pain with a symptom onset >3-hours without recurrence, a single initial hs-cTnT<6 ng/L identifies patient with a very low risk in emergency department patient population. Nils Franco MD CHEMISTRY Final Result [facility] [address] [place] [address] * (ABNORMAL) CBC WITH AUTO DIFFERENTIAL (09/29/2024 7:05 AM T) WHITE BLOOD COUNT 8.1 4.5 - 11.0 thou/cu mm 09/29/2024 7:28 AM [facility] RED BLOOD COUNT 3.09(L) 4.30 - 5.90 mil/cu mm 09/29/2024 7:28 AM [facility] HEMOGLOBIN 8.6(L) 13.5 - 17.5 g/dL 09/29/2024 7:28 AM [facility] HEMATOCRIT 28.5(L) 37.0 - 53.0 % 09/29/2024 7:28 AM [facility] MCV 92 80 - 100 fL 09/29/2024 7:28 AM [facility] MCH 27.8 26.0 - 34.0 pg 09/29/2024 7:28 AM [facility] MCHC 30.2(L) 32.0 - 36.0 g/dL 09/29/2024 7:28 AM [facility] RDW 14.2 11.5 - 15.5 % 09/29/2024 7:28 AM [facility] PLATELET COUNT 384 140 - 440 thou/cu mm 09/29/2024 7:28 AM [facility] MPV 10.3 6.5 - 11.0 fL 09/29/2024 7:28 AM [facility] % NEUT 57.7 % 09/29/2024 7:28 AM [facility] % LYMPH 19.0 % 09/29/2024 7:28 AM [facility] % MONO 13.7 % 09/29/2024 7:28 AM [facility] % EOS 9.4 % 09/29/2024 7:28 AM [facility] % BASO 0.2 % 09/29/2024 7:28 AM [facility] ABSOLUTE NEUTROPHILS 4.7 1.7 - 7.0 thou/cu mm 09/29/2024 7:28 AM [facility] ABSOLUTE LYMPHOCYTES 1.5 0.9 - 2.9 thou/cu mm 09/29/2024 7:28 AM [facility] ABSOLUTE MONOCYTES 1.1(H) <0.9 thou/cu mm 09/29/2024 7:28 AM [facility] ABSOLUTE EOSINOPHILS 0.8(H) <0.5 thou/cu mm 09/29/2024 7:28 AM [facility] ABSOLUTE BASOPHILS 0.0 <0.3 thou/cu mm 09/29/2024 7:28 AM [facility] Blood BLOOD SPECIMEN / Unknown IV Start / Unknown 09/29/2024 7:05 AM CDT 09/29/2024 7:26 AM T us Nils Franco MD HEMATOLOGY Final Result [facility] [address] [place] [address] * (ABNORMAL) PRO-BNP (09/29/2024 7:05 AM CDT) PRO-BNP 24,419(H) <125 pg/mL 09/29/2024 7:59 AM CDT [facility] Blood BLOOD SPECIMEN / Unknown IV Start / Unknown 09/29/2024 7:05 AM CDT 09/29/2024 7:26 AM CDT [facility] - 09/29/2024 7:59 AM CDT The following cut-points have been suggested for the use of proBNP for the diagnostic evaluation of heart failure (HF) in patient with acute dyspnea. Patients with eGFR >= 60 Diagnosis (rule in CHF) <50 Years Old 450 pg/mL 50 - 75 Years Old 900 pg/mL >75 Years Old 1800 pg/mL Exclusion (rule out CHF) Age Independent 300 pg/mL A cutoff of 1200 pg/mL for patients with an eGFR <60 yields a diagnostic sensitivity of 89% and specificity of 72% for acute congestive heart failure. us Nils Franco MD SEND OUTS Final Result [facility] [address] [place] [address] * FERRITIN (09/29/2024 7:05 AM CDT) FERRITIN 162.0 30.0 - 400.0 ng/mL 09/30/2024 11:21 PM CDT [facility] Blood BLOOD SPECIMEN / Unknown IV Start / Unknown 09/29/2024 7:05 AM CDT 09/29/2024 7:26 AM CDT us Jovanni Johnson MD CHEMISTRY Final Resul t [facility] [address] [place] [address], [place] * (ABNORMAL) HEPATIC FUNCTION PANEL (09/29/2024 7:05 AM CDT) ALBUMIN 2.7(L) 4.0 - 4.9 g/dL 09/29/2024 7:49 AM CDT [facility] PROTEIN,TOTAL 6.6 6.0 - 8.0 g/dL 09/29/2024 7:49 AM T [facility] BILIRUBIN,TOTAL <0.2 0.0 - 1.2 mg/dL 09/29/2024 7:49 AM T [facility] BILIRUBIN,DIRECT <0.1 0.0 - 0.2 mg/dL 09/29/2024 7:49 AM T [facility] BILIRUBIN,INDIRE CT 09/29/2024 7:49 AM [facility] Comment:Unable to calculate, Direct Bili <0.1 ALK PHOSPHATASE 107 40 - 129 IU/L 09/29/2024 7:49 AM T [facility] ALT (SGPT) 24 10 - 50 IU/L 09/29/2024 7:49 AM T [facility] AST (SGOT) 49 10 - 50 IU/L 09/29/2024 7:49 AM T [facility] Blood BLOOD SPECIMEN / Unknown IV Start / Unknown 09/29/2024 7:05 AM CDT 09/29/2024 7:26 AM CDT us Nils Franco MD CHEMISTRY Final Result [facility] [address] [place] [address] * EKG 12 LEAD (09/29/2024 6:58 AM CDT) Pathologist [facility] Interpretation Normal sinus rhythm Normal ECG BEYOND NOW Ventricular Rate 89 BPM BEYOND NOW Atrial Rate 89 BPM BEYOND NOW P-R Interval 138 ms BEYOND NOW QRS Duration 72 ms BEYOND NOW QT 380 ms BEYOND NOW QTc 462 ms BEYOND NOW P [place] 27 degrees BEYOND NOW R [place] -5 degrees BEYOND NOW T [place] 54 degrees BEYOND NOW 09/29/2024 6:58 AM CDT 09/29/2024 6:46 PM CDT [facility] Triage EKG ORD Final Result [facility]YOND NOW [place], [place] * (ABNORMAL) LIPID PANEL (07/16/2023 9:45 AM CDT) Pathologist [facility] CHOLESTEROL,TOTAL 420(H) 100 - 199 mg/dL 07/17/2023 3:25 PM CDT [facility] Comment: Cholesterol, Total Reference Ranges Desirable <200 mg/dL Borderline 200-239 mg/dL High >=240 mg/dL TRIGLYCERIDES 332(H) <150 mg/dL 07/17/2023 3:25 PM CDT [facility] HDL CHOLESTEROL 51 >40 mg/dL 3:25 PM CDT [facility] NON-HDL CHOLESTEROL 369(H) <145 mg/dl 07/17/2023 3:25 PM CDT [facility] CHOL/HDL RATIO 8.24(H) <4.50 07/17/2023 3:25 PM CDT [facility] LDL CHOLESTEROL 303(H) <=130 mg/dL 07/17/2023 3:25 PM CDT [facility] VLDL CHOLESTEROL 66(H) <=30 mg/dL 07/17/2023 3:25 PM CDT [facility] PROVIDER ORDERED STATUS RANDOM 07/17/2023 3:25 PM CDT [facility] Blood BLOOD SPECIMEN / Unknown Non-Lab Venipuncture / Unknown 07/16/2023 9:45 AM CDT 07/17/2023 1:35 PM CDT Marylou Garner MD CHEMISTRY Final Result [facility] [address] [place] [address], [place] from Last 3 Months or Most Recently Relevant to Health Maintenance Additional Health Concerns Infection Onset Date Last Indicated MRSA Comment:Order contact precautions. Nares surveillance cultures needed to clear patient if <12 months since positive culture. If >12 months since positive culture, precautions can be discontinued if patient has no MRSA risk factors. 09/30/2024: Patient is excluded from discontinuation due to chronic wounds, now starting on dialysis this admission +MRSA left metatarsal bone 11/23/2019 exclusions for contact precaution discontinuation (if > 12 months since positive culture): resides in acute/manager intermediate care, receiving hemodialysis, has chronic open wounds/skin damage, has long-term percutaneous indwelling medical devices Exclusions for nares collection (if <12 months since positive culture) include all of the previous exclusions plus patients on antibiotics 7 days prior to collection 11/23/2019 11/23/2019 MDRO Clearance Comment:Infection Control Note: Hx of ESBL+ Proteus 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 Do not delete or resolve the Infection Flag. 09/29/2024 09/29/2024 Insurance MEDICAID [facility] [place] [place] [address] [id number] [id number] Advance Directives * Full Code (Latest Code Status on File) Date Activated Date Inactivated Comments 09/29/2024 7:29 PM 10/08/2024 7:27 PM Question Answer Comments Code Status Discussion: Reviewed Preferences * Full Code Date Activated Date Inactivated Comments 04/14/2024 2:25 PM 04/16/2024 4:39 PM Question Answer Comments Code Status Discussion: Reviewed Preferences * Full Code Date Activated Date Inactivated Comments 11/23/2019 10:43 AM 11/26/2019 6:54 PM Question Answer Comments Code Status Discussion: Discussed * Full Code Date Activated Date Inactivated Comments 03/15/2019 8:13 AM 03/15/2019 2:52 PM Question Answer Comments Code Status Discussion: Discussed * Full Code Date Activated Date Inactivated Comments 03/15/2019 8:12 AM 03/15/2019 8:13 AM Question Answer Comments Code Status Discussion: Discussed Care Teams Art Coordinator Relationship Specialty Start Date End Date Josephine Gregory, RN, ELECTRIC NEEDLE SPECIALIST [address] [place] [address] PCP - General Nurse Practitioner 09/29/24 Giorgi Hickman MD [address] [facility] [address] [id number] Consulting Physician Nephrology 07/17/24 [facility], [place] [address] [facility] [place] [address] 10/08/24
--- NOTE | 2024-10-13 08:11 | CRLHL7_ITS ---
For Patients: As a result of the Cures Act, medical imaging exams and procedure reports are released immediately into your electronic medical record. You may view this report before your referring provider. If you have questions, please contact your health care provider. INDICATION: Hypothermia COMPARISON: None. TECHNIQUE: 1 view chest radiograph. FINDINGS: Devices: Right IJ central line distal tip superior cavoatrial junction. Lung volumes are moderate. No focal or diffuse opacities. No pulmonary edema. No pleural effusion. No pneumothorax. No pneumomediastinum. Heart size is normal. Bones: No acute findings. IMPRESSION: Moderate lung volumes. No acute findings. Dictated by Lor Gutierrez MD @ 10/13/2024 9:20:50 AM (Electronically Signed)
--- NOTE | 2024-10-13 08:12 | ED.GENADULT ---
HPI - General Adult General Chief complaint: Hypothermia Stated complaint: fever Time Seen by Provider: 10/13/24 08:06 History of Present Illness HPI narrative: This 49-year-old male reported to dialysis today but was sent here because of hypothermia. He states that he felt well 2 days ago. Last evening he started to feel ill with chills and diaphoresis. He states that he was diaphoretic at about 4:00 a.m. this morning. He does not report any pain and denies having any cough or dysuria symptoms. He is on dialysis but states that he is making urine. He arrives here with a temperature at 91.1? F. other vital signs are in normal range. Related Data Home Medications ?Medication ?Instructions ?Recorded ?Confirmed glipizide 10 mg tablet 10 mg PO BID 10/28/23 10/13/24 pioglitazone 45 mg tablet 45 mg PO DAILY 10/28/23 10/13/24 amlodipine 5 mg tablet 5 mg PO DAILY 10/13/24 10/13/24 Allergies Allergy/AdvReac Type Severity Reaction Status Date / Time No Known Drug Allergies Allergy Verified 10/13/24 07:57 Review of Systems Status of ROS: Reports: 10 or more systems reviewed and unremarkable except as noted in History and below Narrative: Constitutional: No weight gain or loss. Chills and diaphoresis. Eyes: No discharge. No vision changes. HENT: No congestion, no sore throat, no ear pain. Cardiovascular: No chest pain, no palpitations. Respiratory: No shortness of breath, no wheezes, no cough. Gastrointestinal: No abdominal pain, no vomiting, no diarrhea. Genitourinary: No dysuria, no hematuria. Musculoskeletal: Normal range of motion. Skin: No rashes, no pruritis. Neurological: No dizziness, weakness, sensory change, speech change. Endo/Heme/Allergies: No bruising or bleeding. No polydipsia. Pysch: no suicidality, no anxiety, no insomnia. All other systems reviewed and are negative. [facility] Social History Smoking Status: Never smoker How often do you have a drink containing alcohol: never AUDIT-C Alcohol total score: 0 Non-prescribed substance use: denies use Exam Narrative: Exam Narrative: Constitutional: Well-developed, well-nourished, no acute distress. HEENT: Normocephalic, atraumatic. Neck: Normal range of motion. Nontender. Supple. Heart: Regular. No murmurs. Normal rate. Intact distal pulses. Lungs: Clear to auscultation. No chest discomfort. No wheezes, rhonchi, or rales. Abdomen: Normal bowel sounds. Nontender. No rebound tenderness. Genitalia: Deferred. Back: No midline tenderness. Normal range of motion. Extremities: Normal range of motion. No injury. Skin: Intact. No rash. Warm. No erythema or pallor. Neurologic: No altered sensation. No weakness. Alert and oriented. Psychiatric: No suicidality. No anxiety or depression. No insomnia. Nursing notes and vitals signs are reviewed. Const: Vital Signs, click to edit/add: Vital Signs - 24 hr 10/13/24 07:49 10/13/24 08:11 10/13/24 08:15 Temperature 91.1 F L Pulse Rate 62 61 Pulse Rate [Pulse Oximeter] 66 Respiratory Rate 16 Blood Pressure Blood Pressure [Ri ght Upper Arm] 130/68 Pulse Oximetry 100 100 100 Oxygen Delivery Me od Room Air 10/13/24 08:17 10/13/24 08:43 10/13/24 08:45 Temperature Pulse Rate 63 64 65 Pulse Rate [Pulse Oximeter] Respiratory Rate 16 Blood Pressure 136/85 136/87 Blood Pressure [Ri ght Upper Arm] Pulse Oximetry 100 99 99 Oxygen Delivery Nh thod 10/13/24 08:46 10/13/24 09:00 10/13/24 09:02 Temperature Pulse Rate 64 63 66 Pulse Rate [Pulse Oximeter] Respiratory Rate Blood Pressure 118/88 Blood Pressure [Ri ght Upper Arm] Pulse Oximetry 99 100 99 Oxygen Delivery Nh thod 10/13/24 09:03 10/13/24 09:11 10/13/24 09:15 Temperature 96.3 F L Pulse Rate 63 63 Pulse Rate [Pulse Oximeter] Respiratory Rate Blood Pressure Blood Pressure [Ri ght Upper Arm] Pulse Oximetry 99 99 Oxygen Delivery Nh thod 10/13/24 09:30 10/13/24 09:32 10/13/24 09:45 Temperature Pulse Rate 64 64 67 Pulse Rate [Pulse Oximeter] Respiratory Rate Blood Pressure 127/79 Blood Pressure [Ri ght Upper Arm] Pulse Oximetry 94 99 94 Oxygen Delivery Me thod 10/13/24 10:00 10/13/24 10:01 Temperature 96.5 F L Pulse Rate 67 67 Pulse Rate [Pulse Oximeter] Respiratory Rate Blood Pressure 143/84 H Blood Pressure [Ri ght Upper Arm] Pulse Oximetry 99 99 Oxygen Delivery Me thod Course Vital Signs Vital signs: Initial Vital Signs Temperature 91.1 F L 10/13/24 07:49 Temperature Source Rectal 10/13/24 07:49 Pulse Rate 66 10/13/24 07:49 Respiratory Rate 16 10/13/24 07:49 Blood Pressure 130/68 10/13/24 07:49 Blood Pressure Mean 88 10/13/24 07:49 Pulse Oximetry 100 10/13/24 07:49 Oxygen Delivery Method Room Air 10/13/24 07:49 Vital Signs Temperature 91.1 F L 10/13/24 07:49 Pulse Rate 66 10/13/24 07:49 Respiratory Rate 16 10/13/24 07:49 Blood Pressure 130/68 10/13/24 07:49 Pulse Oximetry 100 10/13/24 07:49 Oxygen Delivery Method Room Air 10/13/24 07:49 Temperature 96.5 F L 10/13/24 10:01 Pulse Rate 67 10/13/24 10:01 Respiratory Rate 16 10/13/24 08:43 Blood Pressure 143/84 H 10/13/24 10:01 Pulse Oximetry 99 10/13/24 10:01 Oxygen Delivery Method Room Air 10/13/24 07:49 Medications Administered Medications: Discontinued Medications Generic Name Dose Route Start Last Admin Trade Name Freq PRN Reason Stop Dose Admin Ceftriaxone Sodium 1 gm/ 100 mls @ 200 mls/hr 10/13/24 09:22 10/13/24 09:30 Sodium Chloride IVPB 10/13/24 09:23 200 mls/hr ONCE ONE Administration Medical Decision Making MDM Narrative Medical decision making narrative: This 49-year-old comes in with hypothermia. He presented did dialysis and was sent here because of his low temperature. Other vital signs are in normal range. He is not complaining of any pain. An IV was established where he did receive a L of normal saline and labs are acquired. His white count is in normal range and lactate also is normal. Other labs are indicative of a need for dialysis but no explanation for finding to explain his hypothermia. Nasal pharyngeal swab is negative for viruses tested. I did examine his right foot which had a amputation of a toe about a week ago. The dressing was removed and there is no sign of drainage or infection there. He also has a port in his right upper chest but this also looks good without sign of drainage or infection. The patient did receive a g of Rocephin after blood cultures were acquired. He is feeling much better after being warmed with a Silva Hugger and IV fluids. His temperature is normalized. He is okay to be discharged back to dialysis. Lab Data Labs: Lab Results 10/13/24 10/13/24 Range/Units 08:20 08:30 WBC 7.97 (4.50-11.00) K/uL RBC 3.09 L (4.30-5.90) m/uL Hgb 8.8 L (13.5-17.5) gm/dL Hct 27.8 L (37.0-53.0) % MCV 90 (80-100) fL MCH 29 (26-34) pg MCHC 32 (32-36) gm/dL RDW Coeff of Lei 13.4 (11.5-15.5) % Plt Count 278 (140-440) K/uL Neut % (Auto) 70.4 (42.0-72.0) % Lymph % (Auto) 13.6 L (20-44) % Kane % (Auto) 11.3 H (0.0-11.0) % Eos % (Auto) 3.3 (0.0-7.0) % Baso % (Auto) 1.1 (0.0-3.0) % Neut # (Auto) 5.62 (1.7-7.0) K/uL Lymph # (Auto) 1.10 (0.90-2.90) K/uL Kane # (Auto) 0.90 (0.00-0.90) K/UL Eos # (Auto) 0.26 (0.00-0.50) K/uL Baso # (Auto) 0.09 (0.00-0.30) K/uL Abs Immat Gran (auto) 0.02 (0.00-0.30) K/uL Imm/Tot Granulo (auto) 0.3 % Sodium 130 L (135-149) mmol/L Potassium 4.2 (3.6-5.1) mmol/L Chloride 97 (96-114) mmol/L Carbon Dioxide 26 (20-32) mmol/L Anion Gap 7 (7-15) mEq/L BUN 57 H (5-24) mg/dL Creatinine 7.4 H (0.5-1.5) mg/dL Estimated GFR 8 ml/min Glucose 83 (60-115) mg/dL Lactate 0.8 (0.5-1.9) mmol/L Calcium 7.7 L (8.4-10.6) mg/dL C-Reactive Protein 1.8 H (0.5-1.0) mg/dL SARS-CoV-2 (PCR) Negative SARS-CoV-2 (Negative) Influenza Type A (PCR) Negative PCR FLU A (Negative) Influenza Type B (PCR) Negative PCR FLU B (Negative) RSV (PCR) Negative PCR RSV (Negative) Discharge Plan Discharge Clinical Impression: Hypothermia Patient Disposition: Home w/ Parent or Adult Condition: Improved Additional Instructions: Continue current plans including dialysis today. Follow up with MD return if worsening symptoms occur. Prescriptions: No Action glipizide 10 mg tablet 10 mg PO BID pioglitazone 45 mg tablet 45 mg PO DAILY amlodipine 5 mg tablet 5 mg PO DAILY Follow Up/Referrals: Provider,Not a Local [Primary Care Provider, Family Practice] Stand Alone Forms: [employer] Info Instructions
[2024-10-13 08:40] LABS: Lactate* 0.8 mmol/L (0.5-1.9)
[2024-10-13 08:41] LABS: Hematocrit 27.8 % (37.0-53.0); Hemoglobin* 8.8 gm/dL (13.5-17.5); Immature Granulocytes Abs Auto 0.02 K/uL (0.00-0.30); Immature Granulocytes Pct Auto 0.3 %; Mean Corpuscular HGB Conc 32 gm/dL (32-36); Mean Corpuscular Hemoglobin 29 pg (26-34); Mean Corpuscular Volume 90 fL (80-100); RDW Coefficient of Variation % 13.4 % (11.5-15.5); Red Blood Count 3.09 m/uL (4.30-5.90); White Blood Count* 7.97 K/uL (4.50-11.00)
[2024-10-13 08:44] LABS: Lymphocytes Absolute Auto 1.10 K/uL (0.90-2.90); Slide Review Reflex No
[2024-10-13 08:58] LABS: Chloride* 97 mmol/L (96-114); Sodium* 130 mmol/L (135-149)
[2024-10-13 08:59] LABS: Potassium* 4.2 mmol/L (3.6-5.1)
[2024-10-13 09:01] LABS: Blood Urea Nitrogen* 57 mg/dL (5-24); Creatinine* 7.4 mg/dL (0.5-1.5); Estimated Glomerular Filt Rate 8 ml/min
[2024-10-13 09:02] LABS: Anion Gap 7 mEq/L (7-15); Calcium* 7.7 mg/dL (8.4-10.6); Carbon Dioxide* 26 mmol/L (20-32); Glucose* 83 mg/dL (60-115)
[2024-10-13 09:25] LABS: PCR FLU A Negative PCR FLU A (Negative); PCR FLU B Negative PCR FLU B (Negative); PCR RSV Negative PCR RSV (Negative); SARS PCR* Negative SARS-CoV-2 (Negative)
[2024-10-13] MEDS: cefTRIAXone 1 GM in 0.9 % SODIUM CHLORIDE Mini-bag 100 ML IVPB (09:30)
== END 2024-10-13 10:27 | disposition home or self-care (01) ==
PROVIDERS: Emergency Provider Emergency Medicine Emergency Medical Services
DX: T68.XXXA Hypothermia, initial encounter (principal)
CPT/HCPCS: 36415; 71045; 80048; 81001; 83605; 85025; 86140; 87040; 87631; 96365; 99284; J0696